=== PATIENT | female | born 1955 | race Caucasian/White ===

== ENCOUNTER → 2018-05-11 15:41 | Outpatient (CLI) | payer OTHER, SELFPAY ==
--- NOTE | 2018-05-11 15:45 | MM_ITS ---
MM Dig screening mamm BI w/CAD CAD Screening INDICATION: Screening for breast cancer, positive family history of breast cancer ORDERING PHYSICIAN: David Candelario MD PATIENT AGE: 63 years COMPARISON: 05/09/2017, 05/04/2016, 10/17/2014 TECHNIQUE: Standard CC and MLO images were obtained. R2 CAD reviewed. FINDINGS: Average to dense fibroglandular tissue. Right breast: Architectural irregularity once again noted in the deep aspect of the right breast slightly lateral not significant changed asymmetric density inferior right breast also unchanged. Left breast: Loop recorder device is once again noted. Asymmetric density in the central aspect of the left breast not significantly changed. No malignant appearing mass or malignant appearing microcalcification. IMPRESSION: Overall no significant change with no evidence of malignancy BI-RADS Category: 2 Benign Finding(s) RECOMMENDED FOLLOW-UP: 1YR - 1 YEAR FOLLOW-UP (A letter has been sent to the patient regarding results of the study.)
== END ==
PROVIDERS: PCP Obstetrics & Gynecology; Visit Provider Obstetrics & Gynecology
DX: Z12.31 Encounter for screening mammogram for malignant neoplasm of breast (principal)
CPT/HCPCS: 77067

== ENCOUNTER → 2018-06-19 15:52 | Outpatient (CLI) | payer OTHER, SELFPAY ==
--- NOTE | 2018-06-19 15:58 | XR_ITS ---
XR hip LT 2-3V w/pelvis Ordering Physician: Scar Lyons MD Patient Age: 63 years: Female HISTORY: ITS.REASON: LEFT HIP PAIN TECHNIQUE: AP pelvis with AP and frog-leg left hip COMPARISON :CT pelvis October 2015 FINDINGS Left hip no fracture or acute findings. Left hip joint space well maintained. The bones well mineralized. The femoral head normal contour and density.. Minimal I corticated I ligamentous calcification, reflecting mild progressive enthesopathy. Seen superior to the greater trochanter of reflecting aging changes, . This was noted developing on previous CT pelvis 2015 slight progression in interval. The fat planes about the hips appear symmetric and within normal limits. Mild degenerative changes lower L-spine. The remainder of osseous pelvis is intact no fracture sacrum and SI joints unremarkable. Right hip intact. Right hip joint space well maintained. Bones well mineralized throughout. IMPRESSION: Left hip intact. No fracture nor acute findings. Osseous pelvis intact.
== END ==
PROVIDERS: PCP Internal Medicine Adolescent Medicine; Visit Provider Internal Medicine Adolescent Medicine
DX: M25.552 Pain in left hip (principal)
CPT/HCPCS: 73502

== ENCOUNTER → 2018-07-04 15:01 | Outpatient (POV) | payer OTHER, SELFPAY | PROVIDERS: Visit Provider Dermatology | DX: Z00.00 Encounter for general adult medical examination without abnormal findings (principal) ==

== ENCOUNTER → 2018-08-14 15:19 | Outpatient (CLI) | payer OTHER, SELFPAY ==
--- NOTE | 2018-08-14 15:25 | XR_ITS ---
XR knee LT 3V Comparison: No prior History: Knee pain Technique: Weightbearing AP, lateral and Arzola views were performed as well as oblique. Findings: Left knee intact with joint space maintained. Medial and lateral compartment intact. Note up to 6 mm subtle lucency at the posterior aspect of the superior patella. May reflect some subchondral cystic change or small osteochondral defect. Upper normal joint fluid suprapatella bursa. IMPRESSION: ... . Only note Small lucent focus at posterior aspect superior patella, reflecting focal degenerative feature- either from cartilage thinning and focal subchondral cystic change, versus small osteochondral defect Perhaps scant increased joint fluid Otherwise medial & lateral compartment unremarkable.
--- NOTE | 2018-08-14 15:25 | XR_ITS ---
XR foot RT min 3V Ordering Physician: Scar Lyons MD Patient Age: 63 years: Female HISTO right foot pain all over. Surgery 3 years ago. RY: ITS.REASON: RT FOOT PAIN TECHNIQUE: 3 view right foot right foot pain COMPARISON :September 2015 FINDINGS No fracture nor subluxation . Bones well mineralized overall satisfactory normal relationships... The forefoot appears stable and intact. However on the frontal projection there is a change in appearance of the navicular.- Noting a 1 cm ovoid lucent area centrally at navicular.on the frontal projection . Suggestion early narrowing at the navicular-medial cuneiform articulation just distal to this. Does patient have pain medial foot? A previous study there is question regarding possible erosion at the medial aspect of first metatarsal base. This is less evident.. Only Question some borderline narrowing at the first carpal/metatarsal joint. . Adequate plantar arch Small 5 mm plantar calcaneal spur again noted slightly more evident IMPRESSION: . No fracture nor nor acute findings.. .. Forefoot intact. Unchanged since 2016. Vague 1 cm ovoid lucent area centrally at navicular, is a change since 2016. Congestion some early narrowing/reflecting minor arthritic arthritic changes at medial cuneiform-navicular articulation just distal to this area
== END ==
PROVIDERS: PCP Internal Medicine Adolescent Medicine; Visit Provider Internal Medicine Adolescent Medicine
DX: M79.671 Pain in right foot (principal); M25.562 Pain in left knee; M79.605 Pain in left leg
CPT/HCPCS: 73562; 73630

== ENCOUNTER 2018-09-14 16:30 | Outpatient (RCR) | payer OTHER, SELFPAY ==
--- NOTE | 2018-08-10 18:13 | HMH.PTOPEV ---
PT Outpatient Evaluation Rehab PT Outpatient Evaluation Start: 08/10/18 17:46 Freq: Status: Active Protocol: Document 08/10/18 17:46 LUCEROISAAC (Rec: 08/10/18 18:13 JENNA [id number]) Electronically Signed By Tanner Landers, PT 08/10/18 17:46 Outpatient Therapy Subjective History Subjective History This is the intial OP PT evaluation for Giulia Houston. Pt reports she had fall ~ 3 years ago and injured her R foot. Pt reports that she also injured her L hip and reports she has had pain in L hip since the fall. Pt reports her pain significantly increased ~ 6 months ago w/ insidious reasons. Pt reportsshe can niot walk w/ out pain or a limp Chief Complaint Pain Stiff Symptom Type Ache Throb Sharp Dull Stabbing Burning Shooting Symptoms Relieved By Rest/Positioning Heat Prescription Meds Symptoms Aggravated By Standing Physical Activity Walking Prior Functional Limitations None Current Functional Limitations Housework Sleeping Standing Squatting Recreation Activity Walking Stairs Symptom Description Constant and Continuous Level of pain today (0-10) 5 Pain scale - at its best (0-10) 5 Pain scale - at its worst (0-10) 8 Hip/Knee Eval Gait Observation General Gait Pattern Observation Antalgic Gait Assistive Device Assistive Devices None / NA Palpation Tenderness left Hip Palpation Findings Tenderness Trigger Point ROM Hip ROM Limitations Pain Hip ROM Reason Not Measured Within Functional Limits Knee ROM Reason Not Measured Within Functional Limits Special Tests Hip Bowstring (Cram) Test Negative Left Negative Right Hip Piriformis Test Positive Left Sciatic Nerve Tension Test Positive Left Hip Scouring (Quadrant) Test Negative Left Outpatient The
== END 2018-09-14 16:35 | disposition home or self-care (01) ==
LOC: PT 16:30
PROVIDERS: Visit Provider Orthopaedic Surgery
DX: M70.62 Trochanteric bursitis, left hip (principal)
CPT/HCPCS: 97010; 97012; 97014; 97033; 97110; 97140; 97163; G0283

== ENCOUNTER → 2019-01-04 15:14 | Outpatient (CLI) | payer OTHER, SELFPAY | PROVIDERS: PCP Internal Medicine Adolescent Medicine; Visit Provider Internal Medicine Cardiovascular Disease | DX: R00.2 Palpitations (principal); R06.09 Other forms of dyspnea; R60.9 Edema, unspecified; G47.9 Sleep disorder, unspecified; R40.0 Somnolence; R94.31 Abnormal electrocardiogram [ECG] [EKG] | CPT/HCPCS: 93270 ==

== ENCOUNTER → 2019-01-18 07:22 | Outpatient (CLI) | payer OTHER, SELFPAY ==
--- NOTE | 2019-01-18 07:25 | CI_ITS ---
Cerebrovascular Exam IMPRESSIONS 1. The bilateral vertebral arteries are patent with normal antegrade flow. 2. Study suggests less than 20% stenosis involving the right internal carotid artery and the left internal carotid artery. 3. Tortuous carotid arteries seen bilaterally. Carotid duplex study. Complete study and Doppler flow study including spectral analysis, color and lemus scale imaging. Tables: Arterial flow: + +--------+---------+ Location V sys V ed + +--------+---------+ Right CCA - proximal 88cm/s 14.1cm/s + +--------+---------+ Right CCA - distal 64.9cm/s 14cm/s + +--------+---------+ Right ECA 76.8cm/s --------- + +--------+---------+ Right ICA - proximal 58.7cm/s 20.3cm/s + +--------+---------+ Right ICA - mid 48.2cm/s 21cm/s + +--------+---------+ Right ICA - distal 83.8cm/s 30.7cm/s + +--------+---------+ Right vertebral 39.8cm/s --------- + +--------+---------+ Left CCA - proximal 99.9cm/s 27.9cm/s + +--------+---------+ Left CCA - distal 88.7cm/s 22.3cm/s + +--------+---------+ Left ECA 76.1cm/s --------- + +--------+---------+ Left ICA - proximal 65.3cm/s 22.6cm/s + +--------+---------+ Left ICA - mid 78.6cm/s 30.9cm/s + +--------+---------+ Left ICA - distal -107cm/s -44.1cm/s + +--------+---------+ Left vertebral 67.7cm/s --------- + +--------+---------+ (Report amended ) Electronically signed by: Star Handley [id number]
--- NOTE | 2019-01-18 07:25 | CA_ITS ---
PROCEDURE: 2-D M-mode and color Doppler study INDICATIONS FOR THE TEST: Chest pain COPD Heart Murmur Tobacco Smoking PalpitationsX Fatigue Syncope Edema HypertensionXDiabetes Mellitus Rheumatic Fever SOB ROBIN Obesity Hyperlipidemia Family History HD Additional History PATIENT INFORMATION HEIGHT:67 WEIGHT:210 GENDER: Female B/P:114/63 2-D/M-MODE INTERPRETATION: 2-D MEASUREMENTS OBSERVED VALUES IN CMS Right Ventricular Dimension (RVDd) 2.3 Interventricular Septum (Thickness)(IVsd) 1.0 Left Ventricular Internal Dimensions(LVIDd) 5.4 Left Ventricular Posterior Wall (Thickness)(LVPWd) .9 Aortic Root 2.8 Aortic Cusp Separation 2.0 Left Atrial Dimensions (LAD) 3.9 2D 1. Left atrium is normal size, left ventricle is normal size, there is no concentric left ventricular hypertrophy, visually estimated ejection fraction 55% with no regional wall motion abnormality. 2. The right atrium and right ventricle are normal size and contractility. 3. The aortic, mitral and tricuspid valvular grossly normal. 4. The pulmonic valve is poorly present. 5. No significant pericardial effusion noted. DOPPLER INTERROGATION: Doppler interrogation of the aortic, mitral and tricuspid valvular presence of mild mitral and tricuspid regurgitation, tricuspid regurgitation jet velocity is inadequate for calculation of the right ventricular systolic pressure, diastolic parameters are within normal range. CONCLUSION: 1. Normal left ventricular size, preserved left ventricular systolic function, visually estimated ejection fraction 55% with no regional wall motion abnormality, diastolic parameters are within normal range. 2. Mild mitral and tricuspid regurgitation 3. No significant pericardial effusion noted.
== END ==
PROVIDERS: PCP Internal Medicine Adolescent Medicine; Visit Provider Internal Medicine Cardiovascular Disease
DX: G47.9 Sleep disorder, unspecified (principal); R40.0 Somnolence; R00.2 Palpitations; R06.09 Other forms of dyspnea; R09.89 Other specified symptoms and signs involving the circulatory and respiratory systems; R60.9 Edema, unspecified; R94.31 Abnormal electrocardiogram [ECG] [EKG]; I35.8 Other nonrheumatic aortic valve disorders
CPT/HCPCS: 93306; 93880; 95806

== ENCOUNTER → 2019-05-31 14:42 | Outpatient (CLI) | payer OTHER, SELFPAY ==
--- NOTE | 2019-05-31 14:43 | XR_ITS ---
PROCEDURE: XR DEXA AXIAL SKELETON CLINICAL HISTORY: screening COMPARISON: No exams were available for comparison TECHNIQUE: FINDINGS: The L1-L4 density is 1.28 grams/centimeters sq with a T-score of 0.9. The lowest density is in the left femoral neck at 0.811 grams/centimeters sq with a T-score of -1.6 consistent with osteopenia. There is mild lumbar scoliosis convex right IMPRESSION: Osteopenia with moderate fracture risk. Treatment advised. Suggest follow-up exam May 2021 Dictated by: Star Handley MD 05/31/2019 16:41 Electronically signed by Star Handley MD in [place] 05/31/2019 16:41
--- NOTE | 2019-05-31 14:43 | MM_ITS ---
PROCEDURE: MM DIG SCREENING MAMM BI W/CAD Patient Age:64Y CLINICAL INDICATION: screening routine screening mammogram.. Takes estrogen no new complaints Family history: Maternal aunt and cousin with breast cancer. COMPARISON: DIGMAMMS MAMMOGRAM SCREEN-CUSTOM FRAME ASSEMBLER N/C from 08/15/2008 DIGMAMMS MAMMOGRAM SCREEN-CUSTOM FRAME ASSEMBLER N/C from 09/02/2009 [facility] DIGITAL MAMM-SCREEN BILATERAL from 11/05/2010 [facility] DIGITAL MAMM-SCREEN BILATERAL from 11/01/2011 [facility] DIGITAL MAMM-SCREEN BILATERAL from 11/06/2012 [facility] DIG MAMM-SCREEN NORA from 11/07/2013 DMDXUAVR DIG MAMM-DX UNI ADD VIEWS-RT from 11/21/2013 DMDXUWAR DIG MAMM-DX UNI RT W ADD VIEW from 05/09/2014 [facility] DIG MAMM-SCREEN NORA from 10/17/2014 [facility] DIG MAMM-SCREEN NORA from 05/04/2016 [facility] DIG MAMM-SCREEN NORA W/CAD from 05/09/2017 [facility] MM Dig screening mamm BI w/CAD from 05/11/2018 TECHNIQUE: Standard CC and MLO images were obtained. R2 CAD reviewed. FINDINGS: Moderate breast density bilaterally. Minimal asymmetry with slight heterogeneous breast pattern Right breast: CAD highlights a small focal area nodular density deep breast MLO view, measuring 5.5mm.-at the deep central right breast on MLO view. Most likely this is a summation shadow, but it is slightly more apparent and evident than previous studies. . The the CC view demonstrates only slight increased density laterally. Suggest cc and MLO spot views of these regions along with a full 90 degree view right breast. If either these areas persist ultrasound recommended to further evaluate I would also note suggestion of subtle area of longstanding very minor architectural distortion at the deep central breast on CC view but this is not of concern and unchanged. Left breast appears stable with no significant new areas of concern. There are some stable small benign-appearing calcifications at the retroareolar region. Follow-up 1 year on the left Note: Apparently study not dictated initially, and then obscured from worklist by the new PAC system IMPRESSION: Right breast. Additional spot views recommended of areas noted above in text but-these most likely reflecting summation shadows. And include small area of nodularity deep breast seen on MLO view; possible minor corresponding density at the lateral breast on CC view. Again likely summation shadows but would benefit from spot views to be cautious Left breast: No new findings of significant concern. Follow-up left mammogram 1 year BI-RAD Category: 0 Need Additional Imaging Evaluation FOLLOW-UP: IMM Immediate Follow-up Recommended (A letter has been sent to the patient regarding results of the study.) Dictated by: Neel Boyd MD 06/08/2019 09:49 Electronically signed by Neel Boyd MD in [place] 06/08/2019 09:49
== END ==
PROVIDERS: PCP Internal Medicine Adolescent Medicine; Visit Provider Obstetrics & Gynecology
DX: Z78.0 Asymptomatic menopausal state (principal); Z12.31 Encounter for screening mammogram for malignant neoplasm of breast
CPT/HCPCS: 77067; 77080

== ENCOUNTER → 2019-06-21 12:30 | Outpatient (CLI) | payer OTHER, SELFPAY ==
--- NOTE | 2019-06-21 12:32 | MM_ITS ---
PROCEDURE: MM DIG MAMM DX UNILAT RT CAD CLINICAL INDICATION: abnormal mammogram Follow-up abnormal mammogram, right breast nodule COMPARISON: [facility] DIG MAMM-SCREEN NORA from 05/04/2016 [facility] DIG MAMM-SCREEN NORA W/CAD from 05/09/2017 [facility] MM Dig screening mamm BI w/CAD from 05/11/2018 MM DIG SCREENING MAMM BI W/CAD from 05/31/2019 US BREAST RT COMPLETE from 06/21/2019 TECHNIQUE: Problem solving views performed of the right breast along with right breast ultrasound. FINDINGS: Average fibroglandular tissue. Multiple asymmetric areas of increased density are once again noted. These have been previously described and appear to compress out as fibroglandular tissue. No discrete mass is evident. No malignant-appearing microcalcification. Right breast ultrasound: Hypoechoic nodules present at 6 o'clock measuring 4 mm. Hypoechoic nodule at 9 o'clock at 4 mm. At 10 o'clock there is a hypoechoic nodule measuring 10 x 6 mm. This was viewed with the technologist and did appear to elongate and may represent an inflamed duct. There are however low level internal echoes in this area. Fine-needle aspiration is suggested with sonographic guidance. These findings were discussed with the patient. IMPRESSION: The areas of asymmetric density on the mammogram appear to compress out. However, there is a mildly suspicious area at 10 o'clock as described above and may represent an inflamed duct or inflamed tissue. Fine-needle aspiration is suggested with sonographic guidance. If this does not aspirate then, core biopsy could be performed at that time. This is mildly suspicious. BI-RAD Category: 4 Suspicious Abnormality - Biopsy Considered FOLLOW-UP: BIO Biopsy Recommended Dictated by: Star Handley MD 06/22/2019 11:43 Electronically signed by Star Handley MD in [place] 06/22/2019 11:43
== END ==
PROVIDERS: PCP Internal Medicine Adolescent Medicine; Visit Provider Obstetrics & Gynecology
DX: R92.8 Other abnormal and inconclusive findings on diagnostic imaging of breast (principal)
CPT/HCPCS: 76641; 77065

== ENCOUNTER → 2019-07-12 13:21 | Outpatient (CLI) | payer OTHER, SELFPAY ==
--- NOTE | 2019-07-12 13:22 | US_ITS ---
PROCEDURE: US FNA BREAST CLINICAL INDICATION: Right breast nodule COMPARISON: MM DIG MAMM DX UNILAT RT CAD from 06/21/2019 US BREAST RT COMPLETE from 06/21/2019 MM DIG MAMM DX UNILAT RT CAD from 07/12/2019 FINDINGS: Following obtaining informed consent under aseptic conditions and local anesthesia with 1 percent buffered lidocaine a 21 gauge needle was inserted into the area of concern at the 10 o'clock region of the right breast. Two passes were made into the nodular area which appeared to decrease slightly in size with minimal aspirate obtained. Cytology: Ductal cells with apocrine metaplasia. This may indicate an apocrine cyst. Post biopsy mammogram of the right breast show no significant abnormalities. IMPRESSION: Successful sonographic guided fine needle aspiration of the hypoechoic nodule at 10 o'clock showing benign findings. Six-month follow-up is suggested. Dictated by: Star Handley MD 07/20/2019 09:11 Electronically signed by Star Handley MD in [place] 07/20/2019 09:11
--- NOTE | 2019-07-12 15:07 | MM_ITS ---
PROCEDURE: MM DIG MAMM DX UNILAT RT CAD CLINICAL INDICATION: S/P FNA RT BREAST COMPARISON: [facility] MM Dig screening mamm BI w/CAD from 05/11/2018 MM DIG SCREENING MAMM BI W/CAD from 05/31/2019 MM DIG MAMM DX UNILAT RT CAD from 06/21/2019 TECHNIQUE: Standard CC and MLO images were obtained. R2 CAD reviewed. FINDINGS: There is average fibroglandular tissue. The previously noted nodular opacity at the 10 o'clock region is less apparent having been aspirated with ultrasound-guided FNA. No malignant appearing mass or malignant-appearing microcalcification. IMPRESSION: Benign findings. Suggest 6 month follow-up per routine protocol following FNA BI-RAD Category: 2 Benign Finding(s) FOLLOW-UP: 6M 6Month Follow-up (A letter has been sent to the patient regarding results of the study.) Dictated by: Star Handley MD 07/13/2019 08:45 Electronically signed by Star Handley MD in [place] 07/20/2019 09:15
== END ==
PROVIDERS: PCP Internal Medicine Adolescent Medicine; Visit Provider Obstetrics & Gynecology
DX: N63.12 Unspecified lump in the right breast, upper inner quadrant (principal)
CPT/HCPCS: 10005; 76942; 77065

== ENCOUNTER → 2019-09-17 13:51 | Outpatient (POV) | payer OTHER, SELFPAY ==
[2019-09-17 13:55] VITALS: RESP 18; O2SAT 99; BMI 31.3
--- NOTE | 2019-09-17 14:48 | XR_ITS ---
PROCEDURE: XR HIP LT 2-3V W/PELVIS CLINICAL INDICATION: LOW BACK PAIN, HIP PAIN COMPARISON: HIPCMLT XR hip LT 2-3V w/pelvis from 06/19/2018 FINDINGS: The calcific linear density adjacent to the left greater trochanteric area is no longer visualized. There are 2 contiguous lucent foci with corticated margins suggesting reactive cysts just beneath the cortex of the lateral margin of the left greater trochanter. Bone density in the left hip joint space and alignment are otherwise normal. Soft tissues are otherwise unremarkable IMPRESSION: No acute process. Possible reactive degenerative subchondral cysts left greater trochanter as described above. Interval resolution of the soft tissue calcific density adjacent to the left greater trochanter. If symptoms persist MRI may be beneficial. Dictated by: Luc Yost 09/17/2019 18:00 Electronically signed by Luc Yost in [place] 09/17/2019 18:00
--- NOTE | 2019-09-17 14:48 | XR_ITS ---
PROCEDURE: XR SACROILIAC JOINT BI MIN 3V CLINICAL INDICATION: LOW BACK PAIN,HIP PAIN COMPARISON: No exams were available for comparison FINDINGS: Bone density is normal. The margins of the sacroiliac joints and sacral foramina appear to be normal without erosions or significant subchondral sclerosis. Visualized portions of the hips appear normal. There is a lower left pelvic punctate phlebolith. Soft tissues are unremarkable. IMPRESSION: No acute findings. Dictated by: Luc Yost 09/17/2019 17:55 Electronically signed by Luc Yost in [place] 09/17/2019 17:55
--- NOTE | 2019-09-17 14:48 | XR_ITS ---
PROCEDURE: XR HIP RT 2-3V W/PELVIS CLINICAL INDICATION: LOW BACK PAIN,HIP PAIN COMPARISON: HIPCMLT XR hip LT 2-3V w/pelvis from 06/19/2018 FINDINGS: No fracture or dislocation is evident. No significant degenerative change. No lytic or blastic change. Unremarkable soft tissues. IMPRESSION: No acute findings. Dictated by: Luc Yost 09/17/2019 17:56 Electronically signed by Luc Yost in [place] 09/17/2019 17:56
--- NOTE | 2019-09-19 12:53 | HMH.PMCON ---
Assessment and Plan (1) Degenerative joint disease (DJD) of lumbar spine Current visit: Yes Status: Chronic Qualifiers: Spinal osteoarthritis complication: with radiculopathy Qualified Code(s): M47.26 - Other spondylosis with radiculopathy, lumbar region Category: Medical Code(s): M47.816 - Spondylosis without myelopathy or radiculopathy, lumbar region (2) Sacroiliitis Current visit: Yes Status: Chronic Category: Medical Code(s): M46.1 - Sacroiliitis, not elsewhere classified - Assessment and plan all Dx Assessment and Plan for all problems:: We will get some x-rays of her bilateral hips along with her SI joints.Helping narrow down her pain pattern. I do believe her SI joint problems may be stemming from her degeneration in her back we will treat her SI joints and then plan on potentially treating her back pain as well. We did discuss an SI joint belt. She is continuing anti-inflammatories. She is continuing a home stretching program. She states she is not on any anticoagulation therapy. She has been instructed to call the office if she has any issues prior to her next appointment. Dr. Valdez has reviewed this note and agrees with this plan of care. This note was dictated using voice recognition software and may contain errors or omissions HPI - Data of Consult Consult date: 09/17/19 Requesting Physician: Ivana See APRN Primary Care Provider: Scar Lyons MD - Consult Narrative Reason for consult: Back pain History of present illness: Ms. Houston is a 64 year old female who presents today for consultation in regards to her back and leg pain. Patient rates her pain today 4 out of 10. Mostly in her low back and radiating into her hips. She has radiation into her knee on the right side. Patient has been seen by neurosurgery in the past. Patient and I had a discussion in regards to treatment. She also has quite a bit of SI joint discomfort. Patient has a positive SI joint compression test Sagar sign and William's test bilaterally. Patient also has an MRI showing degenerative changes within her lower back. Facet joint arthropathy. Patient tried and failed Lortab, Celebrex, gabapentin. Patient does physical therapy with some relief. She is had some hip injections in the past with no real relief. She has no imaging that is recent in regards to her SI joints. CC: Ivana See APRN [facility] History I have reviewed the patient's past medical history: Yes Medical History: Reports:: Arrhythmia, Congestive Heart Failure, Gastroesophageal Reflux Disease(GERD), Hypertension, Palpitations Denies:: Diabetes Mellitus Type 1, Diabetes Mellitus Type 2, Internal Pacemaker, Lung Disease, Seizures *Have you ever received a pneumonia vaccine?: Yes *Have you received a flu vaccine this season?: Yes Other Medical History: Reports: Arthritis Other Surgeries: Yes: Appendectomy, Cardiac Catheterization, Cholecystectomy, Colon Resection, Hysterectomy-Total, Other. No: Pacemaker Amputation: No Fractures: No - *Social History Smoking Status: Never smoker Alcohol Intake: never Alcohol Intake Frequency:: holidays/special occasions only Substance Use Type: denies use *Occupational Status:: other Housing: house Household Members: spouse *Travel in the last 8 weeks: None Family Hx:: Asthma, Diabetes, Hypertension, Hyperlipidemia, Thyroid Disorder, Coronary Artery Disease Review of Systems - Review of Systems ROS General: no recent weight change, no fever, no sleep disturbances Respiratory: no cough, no shortness of air, no recurring pulmonary infections Cardiovascular/Peripheral Vascular: No chest pain, No palpitations, no edema, no shortness of breath. Gastrointestinal: no new onset incontinence, normal bowel movements reported Genitourinary: no new onset incontinence Musculoskeletal: Back pain, leg pain, SI joint pain Psychiatric: normal mood/ affect, Neurological: [denies new onset weak
== END ==
PROVIDERS: PCP Internal Medicine Adolescent Medicine; Visit Provider Clinical Nurse Specialist Family Health
DX: M47.816 Spondylosis without myelopathy or radiculopathy, lumbar region (principal); M46.1 Sacroiliitis, not elsewhere classified
CPT/HCPCS: 72202; 73502; 99202

== ENCOUNTER → 2019-11-09 08:51 | Outpatient (CLI) | payer OTHER, SELFPAY ==
--- NOTE | 2019-11-09 08:56 | XR_ITS ---
PROCEDURE: XR SHOULDER LT MIN 2V CLINICAL INDICATION: LT ROTATOR CUFF SYNDROME Left shoulder pain COMPARISON: No exams were available for comparison FINDINGS: No fracture or dislocation. No lytic or blastic change. There is some mild subacromial stenosis. Minimal hypertrophic changes noted along the inferior aspect of the glenoid. IMPRESSION: Mild subacromial stenosis which may result in impingement symptomatology. Minimal spurring along the inferior aspect of the glenoid Dictated by: Star Handley MD 11/09/2019 13:21 Electronically signed by Star Handley MD in [place] 11/09/2019 13:21
--- NOTE | 2019-11-09 08:56 | XR_ITS ---
PROCEDURE: XR CERVICAL SPINE 5V CLINICAL INDICATION: CERVICAL NEURAGLIA Neck pain, left-sided neuralgia COMPARISON: CS5 CERVICAL SPINE 4 OR 5 VIEWS from 06/25/2015 FINDINGS: Moderate to severe degenerative disc disease is present at C5-C6. There is slight reversal of the lordosis at C5-C6. There is mild foraminal narrowing on the right at C3-C4 and C5-C6 and on the left at C4-C5. No fracture or dislocation. No lytic or blastic change. No evidence of cervical rib. IMPRESSION: Degenerative disc disease C5-C6 with right foraminal narrowing at C3-C4 and C5-C6 and mild left foraminal narrowing at C4-C5. The degenerative disc disease is not significantly changed Dictated by: Star Handley MD 11/09/2019 13:19 Electronically signed by Star Handley MD in [place] 11/09/2019 13:19
== END ==
PROVIDERS: PCP Internal Medicine Adolescent Medicine; Visit Provider Internal Medicine Adolescent Medicine
DX: M54.12 Radiculopathy, cervical region (principal); M75.102 Unspecified rotator cuff tear or rupture of left shoulder, not specified as traumatic
CPT/HCPCS: 72050; 73030

== ENCOUNTER → 2019-11-26 07:43 | Outpatient (CLI) | payer SELFPAY ==
--- NOTE | 2019-11-26 07:44 | CT_ITS ---
PROCEDURE: CT HEART W CALCIUM SCORE CLINICAL HISTORY: screening COMPARISON: No exams were available for comparison TECHNIQUE: Axial images obtained with sagittal and coronal reformats. All CT scans at the facility use one or more dose reduction, viz: automated exposure control, ma/kV adjustment per patient size (including targeted exams where dose is matched to indication, i.e. head), or iterative reconstruction technique. FINDINGS: Coronary artery calcium score is 0 indicating no identifiable calcific atherosclerotic plaque with very low cardiovascular disease risk. Loop recorder device is present on the left IMPRESSION: No identifiable calcific plaque with very low cardiovascular disease risk Dictated by: Star Handley MD 11/26/2019 18:53 Electronically signed by Star Handley MD in [place] 11/26/2019 18:53
== END ==
PROVIDERS: PCP Internal Medicine Adolescent Medicine; Visit Provider Internal Medicine Cardiovascular Disease
DX: Z13.6 Encounter for screening for cardiovascular disorders (principal)
CPT/HCPCS: 75571

== ENCOUNTER → 2019-12-27 10:10 | Outpatient (CLI) | payer OTHER, SELFPAY ==
--- NOTE | 2019-12-27 10:15 | MR_ITS ---
PROCEDURE: MR SHOULDER LT WO CON CLINICAL INDICATION: ROTATOR CUFF SYNDROME OF LEFT SHOULDER Pain that extends the left bicep, limited range of motion TECHNIQUE: Routine multiplanar multisequence exam was performed. FINDINGS: There is moderate acromioclavicular joint arthropathy. Osteophytes are seen projecting inferior to the acromioclavicular joint approximately 3 millimeters. There is some mass effect on the supraspinatus muscle as it traverses inferiorly causing mild impingement. This would predispose the patient to chronic rotator cuff impingement syndrome and rotator cuff tear. There is supraspinatus and infraspinatus tendinopathy without rotator cuff tear. Small amount of fluid is seen in the subacromial/subdeltoid bursa. Small amount of fluid is seen in the subscapularis bursa. Bicipital tendon is in place. IMPRESSION: Acromioclavicular joint arthropathy with inferiorly projecting spurs causing supraspinatus impingement with supraspinatus and infraspinatus tendinopathy. No rotator cuff tear. Dictated by: Parker Musa 12/27/2019 12:25 Electronically signed by Parker Musa in [place] 12/27/2019 12:25
--- NOTE | 2019-12-27 10:16 | MR_ITS ---
PROCEDURE: MR CERVICAL SPINE WO CON CLINICAL INDICATION: CERVICAL NEURALGIA Neck pain extending to left upper extremity numbness tingling COMPARISON: No exams were available for comparison TECHNIQUE: Standard multiplanar multiecho sequences are performed without contrast. 3-D MIP and myelographic images are also rendered and reviewed FINDINGS: The vertebrae are of normal height and alignment. There is no malignant bone marrow signal. There is anatomical positioning of cerebellar tonsils. There is degenerative disc disease at C5-6 with loss of disc space height. At C3-4 there is asymmetrical right hypertrophic facet disease with right foraminal stenosis. At C4-5 there is mild disc bulge with mild convex extrinsic mass effect on the thecal sac. At C5-6 there is disc osteophyte complex eccentric to the right of midline with extrinsic mass effect on the thecal sac with no high-grade central canal or foraminal stenosis. At C6-7 there is disc bulge eccentric to the right of midline with mild extrinsic mass effect on the thecal sac. At C7-T1 there is mild disc bulge with mild mass effect on the thecal sac. At T1-T2 and T2-T3 no axial images are obtained through the disc spaces. Disc extends posterior to the vertebral body endplates with mild extrinsic mass effect on the thecal sac. Disc bulges without high-grade central canal or foraminal stenosis should be considered. No disc herniation is apparent. The spinal cord has a normal appearance. IMPRESSION: Multilevel degenerative disc and facet disease with greatest neural impingement appearing to be right foraminal stenosis C3-4 Dictated by: Parker Musa 12/27/2019 12:33 Electronically signed by Parker Musa in [place] 12/27/2019 12:33
== END ==
PROVIDERS: PCP Internal Medicine Adolescent Medicine; Visit Provider Internal Medicine Adolescent Medicine
DX: M12.812 Other specific arthropathies, not elsewhere classified, left shoulder (principal); M54.12 Radiculopathy, cervical region
CPT/HCPCS: 72141; 73221; 76376

== ENCOUNTER → 2020-01-01 08:58 | Outpatient (CLI) | payer OTHER, SELFPAY ==
--- NOTE | 2020-01-01 | US_ITS ---
PROCEDURE: MM DIG MAMM DX UNILAT RT CAD Digital Breast Tomosynthesis Included CLINICAL INDICATION: ABNORMAL MAMM Follow-up abnormal mammogram, six-month follow-up COMPARISON: MM DIG SCREENING MAMM BI W/CAD from 05/31/2019 US BREAST RT COMPLETE from 06/21/2019 MM DIG MAMM DX UNILAT RT CAD from 06/21/2019 MM DIG MAMM DX UNILAT RT CAD from 07/12/2019 US FNA BREAST from 07/12/2019 US BREAST RT COMPLETE from 01/01/2020 TECHNIQUE: Standard CC and MLO images and 3D Tomosynthesis was obtained. R2 CAD reviewed. Right breast ultrasound complete with axilla FINDINGS: There is average fibroglandular tissue. No malignant appearing mass or malignant-appearing microcalcification is evident. There are scattered benign-appearing calcifications Right breast ultrasound: 3 mm cyst at 9 o'clock near the nipple, 10 mm hypoechoic nodule at the 10 o'clock region near the nipple representing the previous area of aspiration less apparent than when compared to the previous. This did not show carcinoma on the previous FNA.. IMPRESSION: Benign findings. No evidence of malignancy. Recommend bilateral screening mammogram May 2019 to put patient back on schedule BI-RAD Category: 2 Benign Finding(s) FOLLOW-UP: 6M 6Month Follow-up (A letter has been sent to the patient regarding results of the study.) The the Dictated by: Star Handley MD 01/09/2020 12:20 Electronically signed by Star Handley MD in [place] 01/09/2020 12:20
== END ==
PROVIDERS: PCP Internal Medicine Adolescent Medicine; Visit Provider Internal Medicine Adolescent Medicine
DX: R92.8 Other abnormal and inconclusive findings on diagnostic imaging of breast (principal)
CPT/HCPCS: 76641; 77061; 77065; G0279

== ENCOUNTER 2020-01-11 13:00 | Outpatient (RCR) | payer OTHER, SELFPAY ==
--- NOTE | 2019-11-12 10:22 | HMH.PTOPEV ---
PT Outpatient Evaluation Rehab PT Outpatient Evaluation Start: 11/12/19 10:11 Freq: Status: Active Protocol: Document 11/12/19 10:11 FLAVIA (Rec: 11/12/19 10:22 FLAVIA [id number]) Electronically Signed By Alessio Magallanes, PT 11/12/19 10:11 Outpatient Therapy Subjective History Subjective History Pt reports insidious onset L sided neck pain, L SH pain, and L UE s/s to hand beginning ~4 weeks ago. Pt reports 'I quit working, and everything started hurting'. Recent Xrays have revealed L SH subacromial stenosis, L neural foramina nn impingement @C4-6 . Pt reports severe pain from base of neck to L elbow, with severe N&T in L hand, and weakness L UE globally. Chief Complaint Pain,Stiff,Paresthesia, Weakness Symptom Type Ache,Sharp,Dull,Numbness, Tingling Symptoms Relieved By Rest/Positioning,Heat, Prescription Meds Symptoms Aggravated By Physical Activity,Lifting Prior Functional Limitations Reaching,Lifting,Housework, Dressing Current Functional Limitations Reaching,Lifting,Housework, Dressing Symptom Description Constant but Variable Level of pain today (0-10) 5 Pain scale - at its best (0-10) 4 Pain scale - at its worst (0-10) 8 Cervical Eval Palpation Cervical Muscles L Cervical Paraspinal,L CT Junction,L Upper Trapezius Cervical/Thoracic Palpation Findings Tenderness,Trigger Point Posture Head/C-Spine Posture Sitting Position Neutral Position Head/C-Spine Posture Standing Position Neutral Position Flexibility Deficits Upper Trapezius Muscle Length (R) Moderate Tightness,(L) Moderate Tightness Scalene Group Muscle Length (L) Moderate Tightness Pectoralis Major Muscle Length (R) Mild Tightness,(L) Mild Tightness Pectoralis Minor Muscle Length (R) Mild Tightness,(L) Mild Tightness Passive Joint Mobility Cervical PIVM Dec: R OA L OA R AA L AA R C2/3 L C2/3 R C3/4 L C3/4 R C
--- NOTE | 2019-12-20 09:20 | HMH.RHREAS ---
Rehab Reassessment Rehab OP Re-assessment Start: 12/20/19 09:00 Freq: Status: Active Protocol: Document 12/20/19 09:00 FLAVIA (Rec: 12/20/19 09:20 FLAVIA [id number]) Electronically Signed By Alessio Magallanes, PT 12/20/19 09:00 Rehab Re-assessment Subjective Subjective PT REPORTS 4/10 NECK AND L SH PAIN, AND 10/10 NECK AND L SH PAIN W/ACTIVITY ON VAS. PT REPORTS 'MY NECK DOES FEEL BETTER, BUT WHEN I'M ACTIVE I' M MISERABLE'. Objective Objective Notes AROM: CROM FLX 0-55, EXT 0-70, B SB 0-50 L SH FLX 0-170 W/PAIN, ABD 0- 160 W/PAIN, IR 0-10 W/PAIN, ER 0-15 W/PAIN MMT: L SH FLX 4/5, ABD 4/5, ER 4-/5, IR 4/5 ST'S: EMPTY CAN + L, SPEEDS + L, DROP ARM +L TTP: L UT 3/4, L POST RTC 3/4, L ANT RTC 1-2/4, L CERVICAL PARA 3/4 Assessment Progress Assessment Slower Than Expected Assessment Notes PT W/IMPROVED AROM L SH , AND CROM. NO SIGNIFCANT IMPROVEMENTS IN TTP, MMT, OR PAIN LEVEL Patient goals met STG'S 10/03 Goals Not Met STG'S 04/02, LTG'S 07/05 Plan Plan PT TO CONT W/SKILLED P.T. TO MAKE FURTHER IMPROVEMENTS IN CROM/AROM, STRENGTH, AND TTP TO ALLOW FOR OPTIMAL FUNCTION. REQUESTING MRI OF L SH AND CERVICAL SPINE VIA REFERRING PCP Frequency of Therapy 1-2X/WK Duration of therapy 3-4 WKS Time and Billing Re-Eval Time 15 Re-Eval Billing Units 1 PHYSICIAN CERTIFICATION: I certify the specified therapy services for Giulia Houston are required, authorized, and reviewed every 30 days.
== END 2020-01-11 13:05 | disposition home or self-care (01) ==
LOC: PT 13:00
PROVIDERS: PCP Internal Medicine Adolescent Medicine; Visit Provider Internal Medicine Adolescent Medicine
DX: M54.12 Radiculopathy, cervical region (principal); M75.102 Unspecified rotator cuff tear or rupture of left shoulder, not specified as traumatic
CPT/HCPCS: 20560; 97010; 97012; 97014; 97033; 97035; 97110; 97140; 97163; 97164; G0283

== ENCOUNTER → 2020-01-18 10:05 | Outpatient (CLI) | payer OTHER, SELFPAY ==
[2020-01-18 10:39] LABS: Basophils # 0.1 K/mm3 (0-0.2); Basophils % 1.2 % (0.1-2.0); Eosinophils # 0.3 K/mm3 (0.0-0.4); Hematocrit 41.6 % (37.0-47.0); Hemoglobin 13.8 g/dL (12.2-16.2); Lymphocytes # 2.3 K/mm3 (0.7-4.5); Lymphocytes % 24.5 % (10-50); Mean Corpuscular HGB Conc 33.1 g/dL (31.8-35.4); Mean Corpuscular Hemoglobin 31.8 pg (27.0-31.2); Mean Corpuscular Volume 96.1 fl (81-99); Mean Platelet Volume 8.5 fl (7.4-10.4); Monocytes # 0.6 K/mm3 (0.1-1.0); Monocytes % 6.5 % (1.7-9.3); Neutrophils # 6.2 K/mm3 (1.8-7.8); Neutrophils % 64.8 % (37.0-80.0); Platelet Count 281 K/mm3 (142-424); Red Blood Count 4.33 M/mm3 (4.20-5.40); Red Cell Distribution Width 12.8 % (11.5-17.5); White Blood Count 9.5 K/mm3 (4.8-10.8)
[2020-01-18 11:12] LABS: Chloride 104 mmol/L (98-107); Potassium 4.4 mmoL/L (3.5-5.1); Sodium 141 mmol/L (136-145)
[2020-01-18 11:14] LABS: Alanine Aminotransferase 14 U/L (12-78); Anion Gap 10.4 mEq/L (5-15); Aspartate Amino Transferase 22 U/L (14-36); Bilirubin,Unconjugated 0.3 mg/dL (0.0-1.1); Blood Urea Nitrogen 16 mg/dl (7-17); Carbon Dioxide 31 mmol/L (22.0-30.0); Estimated Glomerular Filt Rate 84 ml/min (>60); GFR (African American) 102 ML/MIN (>60)
[2020-01-18 11:15] LABS: Alkaline Phosphatase 95 U/L (38-126); Bilirubin,Indirect 0.2 mg/dL (0.0-0.9); Bilirubin,Total 0.2 mg/dl (0.2-1.3); Calcium 9.6 mg/dl (8.4-10.2); Chol/HDL Ratio 2.3 (1-3.5); Cholesterol 174 mg/dl (140-200); Glucose 81 mg/dl (74-100); HDL Cholesterol 77 mg/dl (40-60); Total Protein,Serum 6.3 g/dl (6.3-8.2); Triglycerides 111 mg/dl (30-150); VLDL Cholesterol 22 mg/dL (0-40)
[2020-01-18 11:47] LABS: Thyroid Stimulating Hormone 2.31 uIU/mL (0.465-4.68)
== END ==
PROVIDERS: Visit Provider Physician Assistant
DX: R00.2 Palpitations (principal); R06.09 Other forms of dyspnea; R60.9 Edema, unspecified
CPT/HCPCS: 36415; 80048; 80061; 80076; 84439; 84443; 85025; 93225

== ENCOUNTER → 2020-07-04 13:46 | Outpatient (CLI) | payer MEDICARE, OTHER, SELFPAY ==
--- NOTE | 2020-07-04 13:48 | XR_ITS ---
PROCEDURE: XR DEXA AXIAL SKELETON CLINICAL HISTORY: POST MENOPAUSAL COMPARISON: CR BONE3 BONE DENSITOMETRY(HIP:LT SPINE from 05/09/2017 FINDINGS: The right hip BMD is 0.645 with a T-score of -1.8. The left hip BMD is 0.672 with a T-score of -1.6. The lumbar spine BMD is 1.175 with a T-score of 1.2. Previously the lowest density was in the left femoral neck with T-score of -0.8. The bone density has decreased compared to the previous exam IMPRESSION: This patient is considered osteopenic according to the World Health Organization criteria. Bone density is between 10 and 25 percent below young normal. Fracture risk is moderate. Treatment is advised. Based on these results a follow-up exam is recommended in 2 year. Dictated by: Star Handley MD 07/08/2020 12:40 Star Handley MD in [place] 07/08/2020 12:40
--- NOTE | 2020-07-04 13:49 | MM_ITS ---
PROCEDURE: MM DIG SCREENING MAMM BI W/CAD Digital Breast Tomosynthesis Included CLINICAL INDICATION: SCREENING There is a history of breast cancer patient's maternal aunt and maternal cousin. There has been a previous biopsy right breast for benign disease. Patient currently is on estrogen. COMPARISON: MG MM DIG MAMM DX UNILAT RT CAD from 06/21/2019 MG MM DIG MAMM DX UNILAT RT CAD from 07/12/2019 MG MM DIG MAMM DX UNILAT RT CAD from 01/01/2020 TECHNIQUE: Standard CC and MLO images and 3D Tomosynthesis was obtained. R2 CAD reviewed. FINDINGS: Mild to moderate diffuse fibroglandular densities are seen in both breasts. There are scattered benign-appearing microcalcifications in each breast. There is a loop recorder device projecting over the inner quadrant left breast. There is no suspicious lesion in either breast and no suspicious microcalcifications. IMPRESSION: Fibrofatty parenchyma with no suspicious lesions seen BI-RAD Category: 2 Benign Finding(s) FOLLOW-UP: 1YR 1 Year Follow-up (A letter has been sent to the patient regarding results of the study.) Dictated by: Dr. Amanuel Matute MD 07/09/2020 08:04 Dr. Amanuel Matute MD in [place] 07/09/2020 08:04
== END ==
PROVIDERS: PCP Internal Medicine Adolescent Medicine; Visit Provider Internal Medicine Adolescent Medicine
DX: Z12.31 Encounter for screening mammogram for malignant neoplasm of breast (principal); Z13.820 Encounter for screening for osteoporosis; Z78.0 Asymptomatic menopausal state
CPT/HCPCS: 77063; 77067; 77080

== ENCOUNTER 2020-07-11 15:00 | Outpatient (RCR) | payer MEDICARE, OTHER, SELFPAY ==
--- NOTE | 2020-06-06 15:48 | HMH.PTOPEV ---
PT Outpatient Evaluation Rehab PT Outpatient Evaluation Start: 06/06/20 15:17 Freq: Status: Active Protocol: Document 06/06/20 15:17 DINA (Rec: 06/06/20 15:48 DINA [id number]) Electronically Signed By Maxi Saleem, PT 06/06/20 15:17 Outpatient Therapy Subjective History Subjective History Patient is a 65 year old female presenting to outpatient PT with reports of chronic R foot pain and foot drop that has progressively gotten worse over the past year. She underwent surgery for posterior tibialis tendon repair approx 5 years ago. Symptom onset started shortly thereafter. Pt reports multiple falls. I fall atleast once a week. She has had 3-4 previous episodes of PT with minimal improvement noted. Signifcant pes planus noted in weight bearing. Pt came to PT to request fitting for AFO. Comorbidities include hx of HTN, LS/CS pain, B hip pain and polymyalgia rheumatica. Chief Complaint Pain,Paresthesia,Weakness Symptom Type Sharp,Burning,Numbness, Tingling Symptoms Relieved By Rest/Positioning,Prescription Meds Symptoms Aggravated By Standing,Physical Activity, Walking Prior Functional Limitations Housework,Standing,Recreation Activity,Walking,Stairs, Balance Current Functional Limitations Housework,Standing,Recreation Activity,Walking,Stairs, Balance Level of pain today (0-10) 5 Pain scale - at its best (0-10) 3 Pain scale - at its worst (0-10) 10 Ankle/Foot Eval Gait Observation General Gait Pattern Observation Antalgic Gait,Decrease Weight Bear (R) Assistive Device Ambulation Assistive Device None Palpation Tenderness right Ankle/Foot Palpation Findings Tenderness Ankle/Foot Palpation Overall Comment Dorsum of talus, surgical incision, distal post-tib attach 3/4 ROM Ankle/Foot Dorsiflexion w/Knee Extended 2 Active Range Motion (degrees) Ankle/Foot Dorsiflexion w/Knee Extended 5 Passive Range (
== END 2020-07-11 15:05 | disposition home or self-care (01) ==
LOC: PT 15:00
PROVIDERS: PCP Internal Medicine Adolescent Medicine; Visit Provider Internal Medicine Adolescent Medicine
DX: M21.371 Foot drop, right foot (principal)
CPT/HCPCS: 97010; 97014; 97110; 97112; 97163; 97760; G0283

== ENCOUNTER → 2020-08-05 16:22 | Outpatient (CLI) | payer MEDICARE, OTHER, SELFPAY ==
--- NOTE | 2020-08-05 16:31 | XR_ITS ---
PROCEDURE: XR CHEST PORTABLE CLINICAL HISTORY: COVID OUT PATIEN Cough COMPARISON: CR CXR CHEST(2 VIEWS-NOT PORTABLE) from 09/03/2015 CR CXR1 CHEST-PORTABLE from 06/24/2017 FINDINGS: The cardiomediastinal silhouette and pulmonary vascularity are within normal limits. Loop recorder device is present projecting over the left heart. Lungs are clear. Mild prominence of the mediastinum unchanged. No acute bony abnormalities. IMPRESSION: No change with no acute finding Dictated by: Star Handley MD 08/05/2020 17:06 Star Handley MD in [place] 08/05/2020 17:06
[2020-08-05 17:21] LABS: Adenovirus,PCR Not Detected (NotDetected); Bordetella Pertussis Not Detected (NotDetected); Chlamydophila Pneumoniae, PCR Not Detected (NotDetected); Coronavirus 19, PCR Not Detected (NotDetected); Coronavirus 229E Not Detected (NotDetected); Coronavirus NL63 Not Detected (NotDetected); Coronavirus OC43 Not Detected (NotDetected); Coronovirus HKU1,PCR Not Detected (NotDetected); Human Metapneumovirus Not Detected (NotDetected); Influenza A, PCR Not Detected (NotDetected); Influenza AH1, 2009 Not Detected (NotDetected); Influenza AH1, PCR Not Detected (NotDetected); Influenza AH3,PCR Not Detected (NotDetected); Influenza B, PCR Not Detected (NotDetected); Mycoplasma Pneumoniae, PCR Not Detected (NotDetected); Parainfluenza 1, PCR Not Detected (NotDetected); Parainfluenza 2, PCR Not Detected (NotDetected); Parainfluenza 3, PCR Not Detected (NotDetected); Parainfluenza 4, PCR Not Detected (NotDetected); Respiratory Syncytial Virus Not Detected (NotDetected); Rhinovirus/Enterovirus Not Detected (NotDetected)
== END ==
PROVIDERS: PCP Internal Medicine Adolescent Medicine; Visit Provider Internal Medicine Adolescent Medicine
DX: Z03.818 Encounter for observation for suspected exposure to other biological agents ruled out (principal); R05 Cough
CPT/HCPCS: 71045; 87581; 87633; 87798; U0003

== ENCOUNTER → 2021-04-24 10:37 | Outpatient (CLI) | payer OTHER, MEDICARE, SELFPAY ==
--- NOTE | 2021-04-24 10:37 | MR_ITS ---
PROCEDURE: MR CERVICAL SPINE WO CON CLINICAL INDICATION: cervical spondylosis with radiculoapthy, Left C5 Neck pain. Lt shoulder pain. Lt arm goes numb/tingly especially when sleeping. No injury. COMPARISON: MR MR CERVICAL SPINE WO CON from 12/27/2019 TECHNIQUE: Standard multiplanar multiecho sequences are performed without contrast. 3-D MIP and myelographic images are also rendered and reviewed FINDINGS: There is normal alignment. The craniocervical junction has an unremarkable appearance. C2-C3: Unremarkable. C3-C4: Facet hypertrophic changes with a tiny left paracentral disc protrusion without impingement. Foraminal narrowing is present on the right from facet hypertrophic change. This is causing impingement upon the exiting C3 nerve root. This has slightly increased compared to the previous exam along with some right lateral recess narrowing which is also slightly increased. C4-C5: Degenerative disc disease. Mild facet and uncovertebral hypertrophy. 2 mm anterolisthesis of C4 with mild left-sided foraminal narrowing which is slightly increased. Minimal bulging disc. C5-C6: Degenerative disc disease with minimal bulging disc and endplate hypertrophic change with facet and uncovertebral hypertrophy with bilateral foraminal narrowing right greater than left. The foraminal narrowing has increased compared to the previous exam. Prominent anterior osteophytes. C6-C7: Facet and uncovertebral hypertrophy with bilateral foraminal narrowing right greater than left. The foraminal narrowing has increased compared to the previous exam C7-T1: Mild degenerative disc disease. Mild bilateral foraminal narrowing. Minimal bulging disc is present at T1-T2 and T2-T3. IMPRESSION: Multilevel cervical spondylosis with lateral recess and foraminal narrowing. Please see above for detailed description at each level. This process as has slightly progressed. No extruded herniated disc. Dictated by: Star Handley MD 04/27/2021 07:57 Star Handley MD in [place] 04/27/2021 07:57
--- NOTE | 2021-04-24 10:37 | MR_ITS ---
PROCEDURE: MR SHOULDER LT WO CON CLINICAL INDICATION: Left arm pain, left shoulder pain COMPARISON: MR MR SHOULDER LT WO CON from 12/27/2019 TECHNIQUE: Routine multiplanar multi echo sequences are performed without gadolinium enhancement. FINDINGS: Acromioclavicular arthropathy causing mild impingement upon the supraspinatus and infraspinatus tendons at the musculotendinous junction as previously described. This does not appear significantly changed. There is subacromial stenosis at 4 mm. Mild thickening with increased T2 signal involves the supraspinatus and infraspinatus tendons consistent with tendinopathy/tendinosis. There is some increase in the T2 signal in the infra acromial region with some increase in thickening suggesting slight worsening of the tendinopathy/tendinosis of the supraspinatus tendon. No definite tendon tear is apparent. The subscapularis and teres minor tendons appear intact. No obvious labral tear. Bicipital tendon is in place. Small amount fluid is present along bicipital tendon sheath and there is a small amount fluid in the sub coracoid region and inferior to the a chromium. IMPRESSION: 1. Acromioclavicular arthropathy with impingement upon the supraspinatus and infraspinatus tendons which is not significantly change with resultant subacromial stenosis. 2. Tendinosis/tendinopathy of the supraspinatus and infraspinatus tendons which appears slightly worse in the supraspinatus region. No rotator cuff tear apparent. 3. Tenosynovitis of the bicipital tendon with a small amount of fluid in the sub coracoid region and inferior to the a chromium Dictated by: Star Handley MD 04/27/2021 09:02 Star Handley MD in [place] 04/27/2021 09:02
== END ==
PROVIDERS: PCP Internal Medicine Adolescent Medicine; Visit Provider Specialist
DX: M54.2 Cervicalgia (principal); M79.602 Pain in left arm; M25.512 Pain in left shoulder; R20.0 Anesthesia of skin; G89.29 Other chronic pain
CPT/HCPCS: 72141; 73221; 76376

== ENCOUNTER → 2021-05-01 07:40 | Outpatient (CLI) | payer OTHER, MEDICARE, SELFPAY | PROVIDERS: Visit Provider Internal Medicine Gastroenterology | DX: Z01.812 Encounter for preprocedural laboratory examination (principal); Z11.52 Encounter for screening for COVID-19; Z13.810 Encounter for screening for upper gastrointestinal disorder; K21.9 Gastro-esophageal reflux disease without esophagitis | CPT/HCPCS: U0003 ==

== ENCOUNTER 2021-05-04 09:41 | Day surgery (SDC) | payer OTHER, MEDICARE, SELFPAY ==
[2021-05-04] VITALS (7 sets, daily range): BP systolic 107–134; BP diastolic 68–87; PULSE 58–74; RESP 12–18; TEMP 36.4–36.9; O2SAT 91–98; BMI 33.7
--- NOTE | 2021-05-04 09:53 | P.PN_ITS ---
[facility] Anesthesia Checklist - Patient Identification Patient Identification: Arm Band - Structural Data Admitted From: Home Planned Operative Procedure/s: EGD Consent for Planned Operative Procedure(s) Verified: Yes - NPO Status Verified Time NPO: 00:00 - Additional verifications Anesthesia Reactions: No - Airway Assessment C-Spine Mobility Assessed: Yes TMJ Mobility Assessed: Yes Dentition: Good Dentition - Neurological Assessment Level of Consciousness: Awake Hx Seizures: No Numbness or tingling in extremities: No - Anesthesia Plan Anesthesia Risk discussed: Yes Anesthesia Plan: Verified ASA Class: II Anesthesia Type: MAC [facility] History I have reviewed the patient's past medical history: Yes Medical History: Reports:: Arrhythmia, Congestive Heart Failure, Gastroesophageal Reflux Disease(GERD), Hyperlipidemia, Hypertension, Palpitations Denies:: Cancer, Diabetes Mellitus Type 1, Diabetes Mellitus Type 2, Internal Pacemaker, Lung Disease, MRSA, Seizures *Have you ever received a pneumonia vaccine?: Yes *Have you received a flu vaccine this season?: Yes Other Medical History: Reports: Arthritis Anesthesia experience/problems:: None Other Surgeries: Yes: Appendectomy, Cardiac Catheterization, Cholecystectomy, Colonoscopy, Colon Resection, EGD, Hysterectomy-Total, Other. No: Pacemaker Amputation: No Fractures: No - *Social History Last grade of school completed: Advanced degree Smoking Status: Never smoker Alcohol Intake: current Alcohol Intake Frequency:: holidays/special occasions only Substance Use Type: denies use *Occupational Status:: employed Housing: house Household Members: spouse *Travel in the last 8 weeks: None Family Hx:: Cancer, Diabetes, Other
--- NOTE | 2021-05-04 11:24 | HMH.PROC ---
[facility] Procedure Note Procedure Note:: Upper Endoscopy Procedure Report: Esophagogastroduodenoscopy with cold biopsies and TTS balloon dilation Endoscopost: Jose Manuel II, MD Referring Physician: Scar Lyons M.D. Date of Procedure: May 04, 2021 Equipment: Olympus GIF 190 standard upper endoscope Sedation: MAC sedation Indications: Mrs. Houston is a 66-year-old female with a long history of GERD. She also has dyspepsia and some functional reflux. The patient has had longstanding IBS constipation. She presently has been on omeprazole, Pepcid, erythromycin and Motegrity. More recently she has had 2 episodes of awakening at nighttime from sleep with gasping, choking and aspiration from gastroesophageal reflux. She continues to have moderate belching and some bloating. She reports no significant heartburn or reflux. She does report some dysphagia with globus sensation. She did have a prior small bowel resection (Dr. Gallo Valdes) and had been seen additionally at [facility]. The patient did have a prior EGD with [place] in May 2019 and had short segment Colorado's esophagus and medium sized hiatal hernia. Her colonoscopy revealed a diminutive polyp (small serrated adenoma) and left-sided diverticulosis. Procedure: Prior to the procedure, a history and physical exam was performed, and patient's medications and allergies were reviewed. The risks, benefits and alternatives of the sedation and procedure were discussed with the patient. All questions were answered and informed consent was obtained. The patient was brought to the procedure room. Patient identification and proposed procedure were verified by the physician and the nurse. The patient was placed in a left lateral decubitus position and the scope was passed under direct vision. Throughout the procedure, the patient's blood pressure, pulse, and oxygen saturations were monitored continuously. The upper GI endoscopy was accomplished without difficulty. The patient tolerated the procedure well. Findings: The scope was passed directly into the upper esophagus and advanced to the third portion of the duodenum. The post bulbar duodenum and duodenal bulb were normal with normal mucosa and conniventes. Cold biopsies were taken from the post bulbar duodenum. The scope was withdrawn through a normal duodenal bulb and pylorus into the stomach. There was moderate bile reflux with some moderate linear reactive gastropathy of the antrum and body of the stomach. Upon retroflexion there was a medium size 3 cm hiatal hernia. There was a inflammatory/sentinel polyp just distal to the GE junction that was removed via cold biopsy. Cold biopsies were taken from the antrum of the stomach to rule out H. pylori. The scope was then withdrawn into the esophagus. There were at least 2 short tongues of salmon-colored mucosa that were biopsied to rule out short segment Colorado's esophagus. There was no evidence of reflux esophagitis. There were tertiary contractions and evidence of moderate esophageal dysmotility. The entire esophagus was dilated to 60 Upper Sorbian/20 mm with a TTS hydrostatic balloon. There was some resistance at the cricopharyngeus (cricopharyngeal spasm). The remainder of the esophageal mucosa was normal. Impression: 1. Cricopharyngeal spasm status post dilation to 20 mm 2. Nonerosive GERD with moderate esophageal dysmotility and 3 cm hiatal hernia 3. Inflammatory polyp GE junction 4. Bile reflux with moderate linear reactive gastropathy Plan: I will follow-up the biopsies. The patient does have functional reflux. This is secondary to gas pressure gradients. I would like for her to do C 13 sucrose breath testing to rule out CSID. If normal, I would still consider enzyme treatment and would check for MIKO. I would also consider changing promotility from erythromycin to domperidone because of tachyphylaxis. She should continue PPI therapy. We will discuss additional treat
== END 2021-05-04 12:44 | disposition home or self-care (01) ==
PROVIDERS: PCP Internal Medicine Adolescent Medicine; Visit Provider Internal Medicine Gastroenterology
PROC: 0DJ08ZZ Inspection of Upper Intestinal Tract, Via Natural or Artificial Opening Endoscopic (ICD-10-PCS; CPT 43235; principal; 2021-05-04 11:00)
DX: J39.2 Other diseases of pharynx (principal); K22.4 Dyskinesia of esophagus; K44.9 Diaphragmatic hernia without obstruction or gangrene; K22.8 Other specified diseases of esophagus; K31.7 Polyp of stomach and duodenum; K31.9 Disease of stomach and duodenum, unspecified; Z87.19 Personal history of other diseases of the digestive system; E78.5 Hyperlipidemia, unspecified; I11.0 Hypertensive heart disease with heart failure; I50.9 Heart failure, unspecified; R00.2 Palpitations; I49.9 Cardiac arrhythmia, unspecified
CPT/HCPCS: 43239; 43249; C1726

== ENCOUNTER → 2021-06-13 10:30 | Outpatient (CLI) | payer OTHER, MEDICARE, SELFPAY ==
[2021-06-13 11:01] LABS: Basophils % 0.5 % (0.1-2.0); Eosinophils # 0.3 K/mm3 (0.0-0.4); Eosinophils % 4.1 % (0.1-12.0); Hemoglobin 13.3 g/dL (12.2-16.2); Lymphocytes # 1.5 K/mm3 (0.7-4.5); Lymphocytes % 19.6 % (10-50); Mean Corpuscular HGB Conc 32.5 g/dL (31.8-35.4); Mean Corpuscular Hemoglobin 32.6 pg (27.0-31.2); Mean Corpuscular Volume 100.3 fl (81-99); Mean Platelet Volume 8.9 fl (7.4-10.4); Monocytes # 0.4 K/mm3 (0.1-1.0); Monocytes % 4.9 % (1.7-9.3); Neutrophils # 5.3 K/mm3 (1.8-7.8); Platelet Count 252 K/mm3 (142-424); Red Blood Count 4.09 M/mm3 (4.20-5.40); Red Cell Distribution Width 12.2 % (11.5-17.5); White Blood Count 7.5 K/mm3 (4.8-10.8)
[2021-06-13 12:12] LABS: Alanine Aminotransferase 17 U/L (12-78); Albumin Level 3.7 g/dl (3.5-5.0); Albumin/Globulin Ratio 1.6 (1.1-1.8); Alkaline Phosphatase 122 U/L (38-126); Aspartate Amino Transferase 27 U/L (14-36); Bilirubin,Total 0.4 mg/dl (0.2-1.3); Blood Urea Nitrogen 16 mg/dl (7-17); Carbon Dioxide 30 mmol/L (22.0-30.0); Chloride 104 mmol/L (98-107); Cholesterol 130 mg/dl (140-200); Estimated Glomerular Filt Rate 100 ml/min (>60); GFR (African American) 121 ML/MIN (>60); Globulin 2.3 g/dL (1.3-3.2); Glucose 93 mg/dl (74-100); Sodium 141 mmol/L (136-145); Triglycerides 121 mg/dl (30-150); Uric Acid 4.5 mg/dl (2.5-6.2); VLDL Cholesterol 24 mg/dL (0-40)
[2021-06-13 12:13] LABS: Chol/HDL Ratio 2.1 (1-3.5); HDL Cholesterol 61 mg/dl (40-60)
[2021-06-13 12:18] LABS: C-Reactive Protein 4.6 mg/L (0-4)
[2021-06-13 12:29] LABS: 25-OH Vitamin D, Total 32.3 ng/mL (30-100)
[2021-06-13 12:45] LABS: Thyroid Stimulating Hormone 1.32 uIU/mL (0.465-4.68)
[2021-06-13 13:20] LABS: Vitamin B12 375 pg/mL (239-931)
[2021-06-13 13:53] LABS: Erythrocyte Sedimentation Rate 21 mm/hr (0-30)
[2021-06-14 07:56] LABS: RA Latex Turbid. <10.0 IU/mL (0.0-13.9)
[2021-06-15 20:13] LABS: Antinuclear Antibodies, IFA Negative (.)
[2021-06-20 16:33] LABS: Antinuclear Antibodies (ANA) NEGATIVE
== END ==
PROVIDERS: Nurse Practitioner Family; Visit Provider Specialist
DX: M46.1 Sacroiliitis, not elsewhere classified (principal); M25.50 Pain in unspecified joint; M19.90 Unspecified osteoarthritis, unspecified site; M47.816 Spondylosis without myelopathy or radiculopathy, lumbar region; M79.89 Other specified soft tissue disorders; I10 Essential (primary) hypertension; E78.5 Hyperlipidemia, unspecified; M85.80 Other specified disorders of bone density and structure, unspecified site; E66.3 Overweight; Z68.33 Body mass index [BMI] 33.0-33.9, adult
CPT/HCPCS: 36415; 80053; 80061; 82306; 82607; 82746; 84443; 84550; 85025; 85651; 86038; 86140; 86225; 86235; 86431

== ENCOUNTER → 2021-07-10 07:58 | Outpatient (CLI) | payer OTHER, MEDICARE, SELFPAY ==
--- NOTE | 2021-07-10 08:00 | MM_ITS ---
PROCEDURE INFORMATION: Exam: MG Bilateral Screening 3D Mammography Exam date and time: 07/10/2021 8:00 AM Age: 66 years old Clinical indication: Encounter for screening mammogram for malignant neoplasm of breast . Family history of breast carcinoma. TECHNIQUE: Imaging protocol: Bilateral screening tomosynthesis and 2D mammography including computer-aided detection (CAD) when performed. COMPARISON: 1. MG MM DIG SCREENING MAMM BI W/CAD 07/04/2020 2:19 PM 2. MG MM DIG MAMM DX UNILAT RT CAD 01/01/2020 9:11 AM 3. MG MM DIG MAMM DX UNILAT RT CAD 07/12/2019 3:09 PM FINDINGS: MAMMOGRAPHY: Breast composition: There are scattered areas of fibroglandular density. Mass: No suspicious masses. Architectural distortion: No suspicious distortion. Calcifications: No suspicious calcifications. Asymmetric density: None. Skin thickening: None. Axillary adenopathy: None. Other findings: Loop recorder device projected over the medial left breast, partially obscuring the 9 o'clock position . Images are best obtainable. IMPRESSION: No mammographic evidence of malignancy. Annual screening is recommended unless otherwise clinically indicated. ASSESSMENT: BI-RADS Category 2: Benign
== END ==
PROVIDERS: PCP Internal Medicine Adolescent Medicine; Visit Provider Internal Medicine Adolescent Medicine
DX: Z12.31 Encounter for screening mammogram for malignant neoplasm of breast (principal)
CPT/HCPCS: 77063; 77067

== ENCOUNTER → 2021-07-15 14:09 | Outpatient (CLI) | payer OTHER, MEDICARE, SELFPAY ==
[2021-07-15 14:27] LABS: Basophils # 0.1 K/mm3 (0-0.2); Basophils % 0.6 % (0.1-2.0); Eosinophils # 0.5 K/mm3 (0.0-0.4); Eosinophils % 5.5 % (0.1-12.0); Hematocrit 40.1 % (37.0-47.0); Hemoglobin 13.1 g/dL (12.2-16.2); Lymphocytes # 2.1 K/mm3 (0.7-4.5); Mean Corpuscular HGB Conc 32.6 g/dL (31.8-35.4); Mean Corpuscular Hemoglobin 32.6 pg (27.0-31.2); Mean Platelet Volume 8.7 fl (7.4-10.4); Monocytes # 0.4 K/mm3 (0.1-1.0); Monocytes % 4.4 % (1.7-9.3); Neutrophils # 5.2 K/mm3 (1.8-7.8); Neutrophils % 63.5 % (37.0-80.0); Platelet Count 284 K/mm3 (142-424); Red Blood Count 4.01 M/mm3 (4.20-5.40); White Blood Count 8.2 K/mm3 (4.8-10.8)
[2021-07-15 15:05] LABS: Alanine Aminotransferase 15 U/L (12-78); Albumin Level 3.5 g/dl (3.5-5.0); Albumin/Globulin Ratio 1.5 (1.1-1.8); Alkaline Phosphatase 113 U/L (38-126); Aspartate Amino Transferase 25 U/L (14-36); Bilirubin,Total 0.2 mg/dl (0.2-1.3); Blood Urea Nitrogen 15 mg/dl (7-17); Carbon Dioxide 28 mmol/L (22.0-30.0); Chloride 107 mmol/L (98-107); Estimated Glomerular Filt Rate 100 ml/min (>60); GFR (African American) 121 ML/MIN (>60); Globulin 2.4 g/dL (1.3-3.2); Glucose 118 mg/dl (74-100); Sodium 141 mmol/L (136-145); Total Protein,Serum 5.9 g/dl (6.3-8.2); Uric Acid 4.8 mg/dl (2.5-6.2)
[2021-07-15 15:10] LABS: C-Reactive Protein 3.5 mg/L (0-4)
[2021-07-15 15:39] LABS: Erythrocyte Sedimentation Rate 17 mm/hr (0-30)
[2021-07-17 11:14] LABS: RA Latex Turbid. <10.0 IU/mL (0.0-13.9)
[2021-07-17 23:13] LABS: Anti-Cyclic Citrullinated Pept 4 units (0-19)
== END ==
PROVIDERS: Visit Provider Internal Medicine Rheumatology
DX: I10 Essential (primary) hypertension (principal); E78.5 Hyperlipidemia, unspecified; M18.9 Osteoarthritis of first carpometacarpal joint, unspecified; M21.371 Foot drop, right foot; K21.9 Gastro-esophageal reflux disease without esophagitis
CPT/HCPCS: 36415; 80053; 84550; 85025; 85651; 86140; 86200; 86431

== ENCOUNTER → 2021-08-07 07:15 | Outpatient (CLI) | payer OTHER, MEDICARE, SELFPAY ==
--- NOTE | 2021-08-07 07:16 | MR_ITS ---
PROCEDURE INFORMATION: Exam: MR Lumbar Spine Without Contrast Exam date and time: 08/07/2021 7:16 AM Age: 66 years old Clinical indication: Low back pain; Additional info: Chronic lumbosacral radiculopathy involving l4-5. PT had a hard time staying still . repeated scans and sent best images. Lbp worse on RT side. RT leg and foot numbness. No injury or trauma. Prior MR 05-28-14, images and report not available on PACS for comparison TECHNIQUE: Imaging protocol: Multiplanar magnetic resonance images of the lumbar spine without intravenous contrast. COMPARISON: 1. NM BTBB NUC BONE SCAN-WHOLE BODY-TBB 06/25/2015 10:29 AM. Prior report not available. 2. ABDPELW CT ABD PELVIS W/ CONTRAST 11/12/2015 9:33:42 AM FINDINGS: Vertebrae: No acute fracture. There is a normal count of 5 [id number] lumbar type vertebrae.Chronic bilateral L5 spondylolysis more clearly seen on prior CT. Chronic minimal grade 1 anterolisthesis at L5-S1. Chronic minimal anterior wedge deformities T11 and T12. Marrow signal pattern overall within normal limits, with some discogenic degenerative change at the inferior L2 endplate, and at the T11-T12 and T12-L1 levels. No aggressive lytic lesion or metastatic pattern. T12-L1 and T11-T12: Both discs appear quite desiccated, degenerated and narrowed with endplate erosions and spondylosis. Shallow disc bulges indent the thecal sac and slightly narrow the central spinal canal at both levels. Asymmetric intraforaminal bulges or protrusions toward the right sagittal series 2, image 5, mildly narrowing the right T11 and T12 foramina. No high-grade stenosis. L1-L2: Bilateral facet arthropathy. Minimal grade 1 retrolisthesis. Prominent intraforaminal disc bulges or protrusions moderately narrowing the L1 foramina greater toward the left. Minimal narrowing of the central spinal canal. L2-L3: Degenerative disc disease with spondylosis and endplate erosions. Bilateral facet arthropathy. Minimal grade 1 retrolisthesis. Moderate narrowing of both L2 foramina, greater toward the left, slight narrowing of the central spinal canal. No high-grade stenosis. L3-L4: Mildly degenerated disc with edematous tiny posterior disc protrusion or annular tear sagittal series 2, image 9 and axial series 7, image 24. Bilateral facet arthropathy. Mild narrowing of the central spinal canal and of both neural foramina. L4-L5: Moderately degenerated disc with posterior disc narrowing, broad posterolateral disc bulging, tiny posterior disc protrusion toward the right series 7, image 29. Prominent bilateral facet arthropathy with small joint effusions, bilateral ligamentum flavum thickening. The central spinal canal appears moderately stenosed series 7, image 28 with small triangular configuration of the thecal sac. The L4 foramina appear stenosed, this appears moderately severe on the right sagittal series 2, image 6 and mild on the left. L5-S1: Chronic pars defects with slight grade 1 anterolisthesis. Mild facet arthropathy. Degenerative signal loss in the disc, with vacuum phenomenon. Mild disc narrowing. Spondylosis. Posterolateral disc bulging greater toward the left; shallow disc-osteophyte complex narrows the left neural foramen series 7, image 33. No significant spinal stenosis. At least moderate stenosis of the left L5 foramen sagittal series 3, image 13, snug for the exiting nerve root. Milder narrowing of the right L5 foramen with horizontal orientation series 3, image 6, but no nerve compression seen in the neutral supine position. A tiny 8 mm synovial cyst at the posterior margin of the left facet joint series 7, image 31. Soft tiss
== END ==
PROVIDERS: PCP Internal Medicine Adolescent Medicine; Visit Provider Specialist
DX: M54.16 Radiculopathy, lumbar region (principal)
CPT/HCPCS: 72148; 76376

== ENCOUNTER → 2021-10-02 07:14 | Outpatient (CLI) | payer OTHER, MEDICARE, SELFPAY ==
--- NOTE | 2021-10-02 07:30 | MR_ITS ---
FINAL REPORT TECHNIQUE: Multiplanar and multisequence MR imaging was obtained through the thoracic spine. CLINICAL HISTORY: SPINAL STENOSIS OF LUMBAR REGION. BACK PAIN WITH ABNORMAL NERVE CONDUCTION TEST. MID BACK PAIN WORSE ON RT SIDE. SYMPTOMS X3-4YRS. FINDINGS: There is normal alignment of the thoracic vertebral bodies. Vertebral body height is preserved. Bone marrow signal intensity is normal without edema or pathologic marrow replacement. Signal intensity within the substance of the spinal cord is normal. No acute paraspinal abnormality is identified. There is multilevel degenerative disc disease with disc space narrowing and disc desiccation. At T3-T4 is an annular bulge with mild central canal stenosis. There is a small left paracentral disc protrusion at T6-T7 but no central canal stenosis or foraminal narrowing. At T9-T10 is a small right paracentral disc protrusion with no central canal stenosis or foraminal narrowing. IMPRESSION: Mild degenerative disc disease with small protrusions as described. Reviewed, Interpreted and Dictated by Margo Juan MD Transcribed by Jose Barros Authenticated by Margo Juan MD on 10/02/2021 09:11:[address] [facility]
--- NOTE | 2021-10-02 08:27 | XR_ITS ---
FINAL REPORT CLINICAL HISTORY: SPINAL STENOSIS OF LUMBAR REGION, C/O RIGHT SIDED LOW BACK PAIN THAT SHOOTS DOWN RIGHT LEG FINDINGS: LUMBAR SPINE Multiple views including flexion and extension were obtained. There is no acute fracture. Dextroscoliosis is noted. There is grade 1 anterior spondylolisthesis of L5 on S1. There is multilevel degenerative disc disease. There is no change in alignment with flexion or extension. There is no acute paraspinal abnormality. IMPRESSION: Multilevel degenerative disc disease. Reviewed, Interpreted and Dictated by Margo Juan MD Transcribed by Jose Barros Authenticated by Margo Juan MD on 10/02/2021 09:32:19 AM [facility]
== END ==
PROVIDERS: PCP Internal Medicine Adolescent Medicine; Visit Provider Neurological Surgery
DX: M48.061 Spinal stenosis, lumbar region without neurogenic claudication (principal); M51.36 Other intervertebral disc degeneration, lumbar region; M43.06 Spondylolysis, lumbar region
CPT/HCPCS: 72114; 72146

== ENCOUNTER → 2021-10-06 08:02 | Outpatient (POV) | payer OTHER, MEDICARE, SELFPAY ==
[2021-10-06 08:43] VITALS: BP 125/77; PULSE 65; RESP 18; O2SAT 97; BMI 36.0
--- NOTE | 2021-10-06 09:29 | HMH.PMCON ---
Assessment and Plan (1) Degenerative joint disease (DJD) of lumbar spine Status: Acute Category: Medical Code(s): M47.816 - Spondylosis without myelopathy or radiculopathy, lumbar region (2) Lumbar radiculopathy Status: Acute Category: Medical Code(s): M54.16 - Radiculopathy, lumbar region (3) Spinal stenosis Status: Acute Category: Medical Code(s): M48.00 - Spinal stenosis, site unspecified (4) Neurogenic claudication Status: Acute Category: Medical Code(s): G95.19 - Other vascular myelopathies - Assessment and plan all Dx Assessment and Plan for all problems:: Patient is referred today for chronic low back pain with radiation into right leg and foot. She has had this pain for 40+ years and has dealt with the pain. She is currently taking anti-inflammatories twice daily and is undergoing physical therapy. She has been referred to Dr. Curry. He did obtain MRI thoracic lumbar and cervical spine. He also obtained x-rays of bilateral hips and lumbar flexion-extension. He has referred the patient for lumbar epidural steroid injection. If the patient does not get relief, per his note, the patient may be a candidate for laminectomy versus foraminotomy. We will schedule patient for lumbar epidural steroid injection L4-L5. She is not on any anticoagulation therapy and is not diabetic. We will follow-up with her afterwards for further evaluation. Possible side effects of corticosteroids have been discussed with the patient. Risks and benefits of the procedure have been explained to the patient. Patient would like to proceed with the procedure. Patient has been instructed to contact the clinic with any concerns before the next appointment. Dr. Valdez has reviewed this note and agrees with this plan of care. This note was dictated using voice recognition software and make contain errors or omissions. HPI - Data of Consult Patient: new to practice Consult date: 10/06/21 Requesting Physician: Chhaya Eugene APRN - Consult Narrative Reason for consult: Low back pain History of present illness: Ms. Houston is a 66 year old female who presents today for consultation for low back pain with radiation into right leg and foot. 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 Patient reports that Dr. Lipcsomb did notice the patient limping and in notable pain without verbalization. As result, the doctor did refer the patient to neurosurgery. Patient does have a history of right foot drop. She does report to have had a fall many years ago requiring a tendon repair. Since then she has had significant pain in her right foot. The pain has progressively worsened. She has had back pain for 40+ years but says that she has dealt with the pain due to her profession. She is having pain at this time that is made worse with standing and walking. She has edema to her right leg and foot after working more than 10 hours throughout the day. She says lying flat helps the pain. She says after lying for 30 to 40 minutes she gets significant relief and is able to stand and walk once again. Today, the patient's pain is a 10 out of 10. She is scheduled for physical therapy which has been scheduled by Dr. Curry. She has not had any injective therapy. She denies any changes in bowel or bladder habit. She describes the pain as burning, shooting and sharp in nature. The pain is from the right low back and to right leg and right foot as well as toes. She denies any saddle anesthesia. The patient does report to get relief when leaning forward. Of note, Dr. De La Cruz did see the patient more than 10 [address] ago [address] place the patient on prednisone 5 mg daily. She has been taking this for 10+ years. Per the patient's MRI she does have wedge deformities noted at T11-T12. Dr. Alatorre is currently weaning the patient down on prednisone. She does report to have had a DEXA scan in the past that required her to start on v
== END ==
PROVIDERS: Visit Provider Clinical Nurse Specialist Family Health
DX: M47.896 Other spondylosis, lumbar region (principal); M54.16 Radiculopathy, lumbar region; M48.00 Spinal stenosis, site unspecified; G95.19 Other vascular myelopathies
CPT/HCPCS: 99202; G0463

== ENCOUNTER 2021-10-09 08:00 | Outpatient (RCR) | payer OTHER, MEDICARE, SELFPAY | END 2021-10-09 08:05 | disposition home or self-care (01) | LOC: PT 08:00 | PROVIDERS: PCP Internal Medicine Adolescent Medicine; Visit Provider Neurological Surgery | DX: M48.061 Spinal stenosis, lumbar region without neurogenic claudication (principal); M51.36 Other intervertebral disc degeneration, lumbar region; M43.06 Spondylolysis, lumbar region | CPT/HCPCS: 97010; 97012; 97014; 97035; 97110; 97163; G0283 ==

== ENCOUNTER 2021-11-10 08:10 | Outpatient (RCR) | payer OTHER, MEDICARE, SELFPAY | END 2021-11-10 09:14 | disposition home or self-care (01) | LOC: PT 08:10 | PROVIDERS: Visit Provider Internal Medicine Adolescent Medicine | DX: M53.9 Dorsopathy, unspecified (principal); G89.29 Other chronic pain | CPT/HCPCS: 97760 ==

== ENCOUNTER 2021-11-13 13:04 | Day surgery (SDC) | payer OTHER, MEDICARE, SELFPAY ==
[2021-11-13 13:17] VITALS: BP 110/60; BP 111/59; PULSE 63; PULSE 66; RESP 20; TEMP 36.4; O2SAT 96; O2SAT 97; BMI 36.3
[2021-11-13 13:24] VITALS: BP 147/69; PULSE 70; RESP 20; O2SAT 98
[2021-11-13 13:27] VITALS: BP 140/60; PULSE 67; RESP 18; O2SAT 97
--- NOTE | 2021-11-13 14:05 | P.PCN_ITS ---
- Procedure Date: 11/13/21 Time: 14:05 Anesthesiologist:: Robbie Valdez MD Complications:: None Pre-procedure Diagnosis:: Degenerative disc disease of lumbar spine with lumbar radiculopathy symptoms Post-procedure Diagnosis:: Same Indications for Procedure:: This patient is a pleasant 66-year-old white female who was referred by Dr. Curry for lumbar epidural steroid injections. She is also doing physical therapy which is helping some he says that she may be a candidate for laminectomy versus foraminotomy depending on response after the lumbar epidural steroid injections. We will plan on a lumbar epidural steroid injection at L4- L5 today to see if this helps with her pain symptoms. Procedure Details:: Informed consent was obtained and the risk and benefits of the procedure was explained to the patient. The patient was taken to the procedure room. The patient was placed prone on the procedure table. The patient was prepped and draped in sterile fashion. C-arm fluoroscopy was used to view the lumbar spine. Skin and subcutaneous tissues were anesthetized using lidocaine. I placed an 18-gauge epidural needle and advanced into the L4-L5 interspace using fluoroscopic guidance and [id number] to air. After confirmation of needle placement in the epidural space with dye I injected 2 mL of lidocaine 1.5% with Depo-Medrol 80 mg. Patient tolerated the procedure well with no complications. Plan and Disposition:: We will follow-up with her in 2 weeks. Will reevaluate symptoms at that time. We will plan on at least 2 lumbar epidural steroid injections prior to evaluating efficacy and referral back to Dr. Curry.
== END 2021-11-13 13:37 | disposition home or self-care (01) ==
LOC: SC.PAINP 13:06
PROVIDERS: PCP Internal Medicine Adolescent Medicine; Visit Provider Anesthesiology
DX: M51.16 Intervertebral disc disorders with radiculopathy, lumbar region (principal); I10 Essential (primary) hypertension; E78.5 Hyperlipidemia, unspecified; K21.9 Gastro-esophageal reflux disease without esophagitis
CPT/HCPCS: 62323; J1040; Q9966

== ENCOUNTER → 2022-01-08 16:23 | Outpatient (CLI) | payer OTHER, MEDICARE, SELFPAY ==
[2022-01-08 17:52] LABS: Anion Gap 9.6 mEq/L (5-15); Blood Urea Nitrogen 15 mg/dl (7-17); Calcium 9.6 mg/dl (8.4-10.2); Carbon Dioxide 30 mmol/L (22.0-30.0); Chloride 104 mmol/L (98-107); Estimated Glomerular Filt Rate 84 ml/min (>60); GFR (African American) 101 ML/MIN (>60); Glucose 108 mg/dl (74-100); Potassium 3.6 mmoL/L (3.5-5.1); Sodium 140 mmol/L (136-145)
[2022-01-08 18:01] LABS: NT Pro Brain Natriuretic Pep. 158 pg/mL (0-125)
== END ==
PROVIDERS: PCP Internal Medicine Adolescent Medicine; Visit Provider Internal Medicine Cardiovascular Disease
DX: R06.09 Other forms of dyspnea (principal); R00.2 Palpitations; I10 Essential (primary) hypertension; R60.9 Edema, unspecified
CPT/HCPCS: 36415; 80048; 83880; 93270

== ENCOUNTER → 2022-01-22 09:54 | Outpatient (CLI) | payer OTHER, MEDICARE, SELFPAY ==
--- NOTE | 2022-01-22 09:55 | CA_ITS ---
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 2D Dimensions LVOT 2.01 cm (M/F) 1.5-2.5 LVEF (Unger's) 61.20 % F: 54 - 74 LV Volume 89.60 mL F: 46 - 106 LV Volume Index 43.07 mL/m2 F: 29 - 61 LA Volume 54.70 mL LA Volume Index 26.29 mL/m2 (M/F) 16-34 M-Mode Dimensions RVDd 2.88 cm (0.9-2.6) LA Diam 3.66 cm (1.9-4.0) LVDd 4.97 cm (3.5-5.7) Ao Diam 2.63 cm (2.0-3.7) LVDs 3.49 cm (3.5-5.7) IVSd 1.18 cm (0.6-1.1) PWd 0.72 cm (0.6-1.1) EF (Teich) 56.70% FS 29.80% EDV (Teich) 116.60 mL ESV (Teich) 50.50 mL LV Diastology E Decel Time 197.00 (160-240 msec) E/A Ratio 1.5 MED E' 8.70 (< 7 cm/sec) E'/MED E' Ratio 11.56 (>14) LAT E' 8.90 (<10 cm/sec) E/LAT E' Ratio 11.30 (>14) Mitral Valve MV E Max Yuniel. 101.00 (40-130 cm/s) MV A Velocity 66.00 (40-130 cm/s) E/A Ratio 1.53 MV Decel. Time 197.00 (160-240 ms) MV PHT 58.00 ms Tricuspid Valve TR P. Velocity 216.00 cm/s RAP Estimate 10.00 mmHg RVSP 28.60 mmHg Left Ventricle Left atrium is qualitatively mildly enlarged, left ventricle is normal size, left ventricle wall thickness is upper limit of the normal, there is preserved left ventricular systolic function, estimated ejection fraction 55% with no regional wall motion abnormality, diastolic parameters are inconclusive. Right Ventricle Right atrium and right ventricle are normal size and contractility. Aortic Valve Aortic valve is minimally thickened and fibrosed, there is no aortic stenosis or aortic insufficiency. Mitral Valve Mitral valve is grossly normal, there is trace mitral regurgitation. Tricuspid Valve Tricuspid grossly normal, there is trace tricuspid regurgitation, calculated right ventricular systolic pressure 28 mmHg. Pulmonic Valve Pulmonic valve is poorly visualized. Great Vessels Aortic root is normal size. Inferior vena cava is poorly visualized. Pericardium No significant pericardial effusion noted. Conclusion 1. Mildly enlarged left atrium, normal left ventricular size, preserved left ventricular systolic function, estimated ejection fraction 55% with no regional wall motion abnormality, diastolic parameters are inconclusive. 2. Trace mitral and tricuspid regurgitation, calculated right ventricular systolic pressure 28 mmHg. 3. No significant pericardial effusion. 4. Inferior vena cava is poorly visualized. Electronically signed by : Danny Sanders MD 01/22/2022 11:12:10
== END ==
PROVIDERS: PCP Internal Medicine Adolescent Medicine; Visit Provider Internal Medicine Cardiovascular Disease
DX: R06.09 Other forms of dyspnea (principal); R00.2 Palpitations; I10 Essential (primary) hypertension; R60.9 Edema, unspecified
CPT/HCPCS: 93306

== ENCOUNTER → 2022-02-17 08:06 | Outpatient (CLI) | payer OTHER, MEDICARE, SELFPAY ==
[2022-02-17 09:29] LABS: Anion Gap 10.7 mEq/L (5-15); Blood Urea Nitrogen 14 mg/dl (7-17); Calcium 9.3 mg/dl (8.4-10.2); Carbon Dioxide 30 mmol/L (22.0-30.0); Chloride 104 mmol/L (98-107); Estimated Glomerular Filt Rate 84 ml/min (>60); GFR (African American) 101 ML/MIN (>60); Glucose 114 mg/dl (74-100); Potassium 3.7 mmoL/L (3.5-5.1); Sodium 141 mmol/L (136-145)
[2022-02-17 09:35] LABS: NT Pro Brain Natriuretic Pep. 143 pg/mL (0-125)
== END ==
PROVIDERS: Visit Provider Internal Medicine Cardiovascular Disease
DX: R06.09 Other forms of dyspnea (principal); R00.2 Palpitations; I10 Essential (primary) hypertension; R60.9 Edema, unspecified
CPT/HCPCS: 36415; 80048; 83880

== ENCOUNTER → 2022-08-27 08:04 | Outpatient (CLI) | payer OTHER, MEDICARE, SELFPAY ==
--- NOTE | 2022-08-27 08:05 | MM_ITS ---
PROCEDURE INFORMATION: Exam: MG Bilateral Screening 3D Mammography Exam date and time: 08/27/2022 8:14 AM Age: 67 years old Clinical indication: Screening examination TECHNIQUE: Imaging protocol: Bilateral Screening tomosynthesis and 2D mammography including computer-aided detection (CAD) when performed. COMPARISON: 1. MG MM DIG SCREENING MAMM BI W/CAD 07/10/2021 8:18 AM 2. MG MM DIG SCREENING MAMM BI W/CAD 07/04/2020 2:19 PM FINDINGS: MAMMOGRAPHY: Breast composition: There are scattered areas of fibroglandular density. Mass: None. Architectural distortion: None. Calcifications: No suspicious calcifications. Asymmetric density: None. Skin thickening: None. Axillary adenopathy: None. IMPRESSION: No mammographic evidence of malignancy. Annual screening is recommended unless otherwise clinically indicated. ASSESSMENT: BI-RADS Category 1: Negative
--- NOTE | 2022-08-27 08:05 | XR_ITS ---
FINAL REPORT TECHNIQUE: Bone densitometry calculations of the lumbar spine and hips were obtained. CLINICAL HISTORY: . post menopausal screening FINDINGS: DEXA BONE DENSITY AXIAL SKELETON Using L1-4, the bone mineral density of the spine is 1.179 g/cm2, corresponding to T-score of 1.2. Note this value may be falsely elevated secondary to sclerosis and degeneration. Using the left hip, the bone mineral density of the femoral neck is 0.760 g/cm2, corresponding to a T-score of -1.4. Using the right hip, the bone mineral density of the femoral neck is 0.701 g/cm2, corresponding to a T-score of -1.3. NOTE: T-score: Standard deviation compared with peak bone mass of young adult mean. *Following the recommendations of the International Society of Bone densitometry, classification of hip BMD is based on the lower of two T-scores; total hip or femoral neck. IMPRESSION: Diminished bone mineral density of the lumbar spine and hips consistent with osteopenia. Reviewed, Interpreted and Dictated by Ryan Ray MD Transcribed by Selene Abdalla Authenticated and [facility]
== END ==
PROVIDERS: PCP Internal Medicine Adolescent Medicine; Visit Provider Obstetrics & Gynecology
DX: Z12.31 Encounter for screening mammogram for malignant neoplasm of breast (principal); Z78.0 Asymptomatic menopausal state; M85.80 Other specified disorders of bone density and structure, unspecified site
CPT/HCPCS: 77063; 77067; 77080

== ENCOUNTER → 2022-09-16 16:44 | Outpatient (CLI) | payer OTHER, MEDICARE, SELFPAY ==
--- NOTE | 2022-09-16 16:50 | XR_ITS ---
PROCEDURE INFORMATION: Exam: XR Left Hip Exam date and time: 09/16/2022 4:52 PM Age: 67 years old Clinical indication: Hip pain; Left hip TECHNIQUE: Imaging protocol: Radiologic exam of the Left hip. Views: 2 or 3 views hip with pelvis when performed. COMPARISON: CR XR HIP LT 2-3V W/PELVIS 09/17/2019 3:18 PM FINDINGS: Bones/joints: No acute fracture or dislocation. Left hip joint space is well preserved. No significant bony arthritic deformities at the left hip joint. Chronic degenerative cortical irregularity of the greater trochanter of the left femur unchanged compared with 2019. Mild bilateral sacroiliitis. Lower lumbar degenerative changes with spondylosis and facet arthropathy.There are no lytic skeletal lesions seen. Soft tissues: No acute findings. Some chronic calcified granulomas in the left buttock. Tiny rounded lower left pelvic calcification consistent with phlebolith, unchanged. IMPRESSION: 1. No acute findings or significant change compared with 09/17/2019. 2. Mild degenerative changes in the hip, lower lumbar spine and sacroiliac joints. 3. Additional nonemergency and chronic findings as above.
== END ==
PROVIDERS: PCP Internal Medicine Adolescent Medicine; Visit Provider Internal Medicine Adolescent Medicine
DX: M25.552 Pain in left hip (principal)
CPT/HCPCS: 73502

== ENCOUNTER 2022-12-03 06:32 | Day surgery (SDC) | payer OTHER, MEDICARE, SELFPAY ==
[2022-11-30 16:09] VITALS: BMI 32.5
[2022-12-03 06:52] VITALS: BP 136/78; PULSE 67; RESP 18; TEMP 36.3; O2SAT 97
--- NOTE | 2022-12-03 07:11 | EXP.ANES.CKL ---
[facility] Disclaimer: The information contained in this section may have been updated after the patient was seen, as this information can be updated by other users. 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 Surgical History History of cholecystectomy History of colonoscopy History of esophagogastroduodenoscopy (EGD) History of foot surgery History of hysterectomy S/P small bowel resection Family History Other Anemia Asthma Cancer Diabetes Heart attack Hyperlipidemia Hypertension Kidney disease Stroke Social History Smoking Status: Never smoker second hand exposure: No alcohol intake: never substance use type: denies use current occupational status: employed Travel in the last 8 weeks: None household members: spouse housing: house current occupational exposures/hazards: No caffeine: Yes [facility] Anesthesia Checklist Patient Identification Patient Identification: Arm Band and Verbal (Name & ) Structural Data Admitted From: Home Planned Operative Procedure/s: EGD/Colonoscopy Consent for Planned Operative Procedure(s) Verified: Yes NPO Status Verified Time NPO: 00:00 Additional verifications Anesthesia Reactions: No Airway Assessment C-Spine Mobility Assessed: Yes TMJ Mobility Assessed: Yes Dentition: Partials Neurological Assessment Level of Consciousness: Awake Hx Seizures: No Numbness or tingling in extremities: No Anesthesia Plan Anesthesia Risk discussed: Yes Anesthesia Plan: Verified ASA Class: II Anesthesia Type: MAC
[2022-12-03 07:21] VITALS: O2SAT 97
--- NOTE | 2022-12-03 08:36 | HMH.SCOPE ---
Procedure: Date: 12/03/22 Patient Date of :: 1955 Procedure Performed:: Esophagogastroduodenoscopy with polypectomy and biopsy Total colonoscopy to terminal ileum with multiple polypectomy Indications:: Patient is a 67-year-old female. She does have a family history of colon cancer in her grandfather. She is undergone multiple previous colonoscopies. She did undergo a small bowel resection for tumor in [place] by Dr. Gallo Valdes. She actually had been sent to the [facility] for that. She has undergone previous upper endoscopy and there is a concern for possible Colorado's. She has significant reflux which has been managed extensively by Dr. Manuel in the past. She had previous colonoscopy in 2019. Last upper endoscopy was performed 05/04/2021. She was found to have some reactive gastropathy and findings of hyperplastic polyp. She had focal intestinal metaplasia. Performing Provider:: Josiah Miller MD Referring Provider:: Scar Lyons MD Sedation:: MAC sedation Procedure:: Patient history was obtained and appropriate physical examination was performed. Patient's medications and allergies were reviewed. Informed consent was obtained after explaining the benefits, alternatives, and risks of the procedure including, but not limited to, bleeding, perforation, missed lesions, and adverse reaction to anesthesia medications. Patient was transported to endoscopy procedure room. Patient was connected to monitoring devices. Throughout the procedure the patient's blood pressure, pulse, and oxygen saturations were monitored continuously. Patient identification and planned procedure were verified by the staff. Attention was first turned to upper endoscopy. Olympus endoscope was inserted via the oropharynx. Overall esophagus appeared normal. Gastroesophageal junction was encountered at approximately 37 cm. There were findings of possible mild intestinal metaplasia. Stomach was cannulated and insufflated. Retroflexion revealed small to moderate sliding hiatal hernia. Near the cardia there were findings of a pedunculated polyp. This may be hyperplastic. This was removed with snare. There was some minor oozing and Hemoclip was deployed. Gastric biopsies were then obtained. There was a tiny inflammatory appearing nodule at the pylorus which was removed with gastric biopsy. Duodenum appeared unremarkable. Endoscope was withdrawn into the distal esophagus and several biopsies were obtained at the gastroesophageal junction to evaluate for possible Colorado's. Endoscope was withdrawn. Patient was re-positioned for colonoscopy. digital anorectal exam was performed. Variable stiffness Olympus colonoscope was inserted and advanced under direct visualization to the cecum. Adequacy of the colonic preparation was noted. The colonoscope was advanced a short distance into the terminal ileum. The colonoscope was then slowly withdrawn while carefully examining the color, texture, anatomy, and integrity of the mucosoa circumferentially. Within the rectum retroflexion was performed. Colonoscope was then withdrawn. Findings:: Possible Colorado's, short segment, at the GE junction Gastroesophageal junction at 37 cm Small to moderate sliding hiatal hernia Mild gastropathy Moderate polyp, removed with snare in its entirety, in the cardia Fair colonic preparation Diminutive cecal polyp removed with biopsy forceps Ascending colon polyp removed with biopsy Descending colon polyp removed with cold snare Distal sigmoid polyp removed with cold snare Diminutive possibly hyperplastic rectosigmoid polyp x3 removed with snare for 1 and biopsy for 2 Recommendations:: Follow-up on histopathology. Likely repeat EGD and colonoscopy 2 years Complications:: None immediately apparent Estimated blood obtained (mL): 2
[2022-12-03 08:38] VITALS: BP 125/76; PULSE 63; RESP 14; TEMP 36.3; O2SAT 97
[2022-12-03 08:48] VITALS: BP 122/80; PULSE 63; RESP 16; O2SAT 98
[2022-12-03 08:58] VITALS: BP 125/87; PULSE 59; RESP 17; O2SAT 99
[2022-12-03 09:08] VITALS: BP 138/76; PULSE 60; RESP 17; TEMP 36.6; O2SAT 100
== END 2022-12-03 09:08 | disposition home or self-care (01) ==
PROVIDERS: PCP Internal Medicine Adolescent Medicine; Visit Provider Surgery
PROC: 0DJ08ZZ Inspection of Upper Intestinal Tract, Via Natural or Artificial Opening Endoscopic (ICD-10-PCS; CPT 43235; principal; 2022-12-03 07:30)
DX: Z12.11 Encounter for screening for malignant neoplasm of colon (principal); D12.0 Benign neoplasm of cecum; K44.9 Diaphragmatic hernia without obstruction or gangrene; K31.9 Disease of stomach and duodenum, unspecified; Z79.899 Other long term (current) drug therapy; D12.2 Benign neoplasm of ascending colon
CPT/HCPCS: 45380; 45385; 43251; 43239; J2704

== ENCOUNTER 2023-02-23 14:01 | Observation (INO) | payer OTHER, MEDICARE, SELFPAY ==
[2023-02-23] VITALS (12 sets, daily range): BP systolic 126–191; BP diastolic 59–89; PULSE 62–78; RESP 15–18; TEMP 36.4–36.9; O2SAT 97–99; BMI 31.0; BMI 31.6; BMI 31.2
--- NOTE | 2023-02-23 13:58 | ECG_ITS ---
APPROVED REPORT Exam: Resting ECG HR:76 bpm ECG Measurements Heart Rate 76 AXES MN 188 P 55 QRSd 100 QRS -17 QT 366 T 30 QTc 397 Conclusion SINUS RHYTHM WITH OCCASIONAL VENTRICULAR PREMATURE COMPLEXES BORDERLINE ECG UNCONFIRMED REPORT Electronically signed by : Scar Lyons MD 02/23/2023 17:32:17
--- NOTE | 2023-02-23 14:08 | XR_ITS ---
FINAL REPORT CLINICAL HISTORY: chest pain x 4 days FINDINGS: SINGLE-VIEW CHEST The heart size is normal. The mediastinum is normal. The lungs are clear. There is no pneumothorax. IMPRESSION: No acute cardiopulmonary process. Reviewed, Interpreted and Dictated by Ryan Ray MD Transcribed by Nadya Seay Authenticated and [facility]
[2023-02-23 14:13] LABS: Coronavirus 19, PCR Not Detected (NotDetected); Influenza A, PCR Not Detected (NotDetected); Influenza B, PCR Not Detected (NotDetected)
[2023-02-23 14:23] LABS: Chloride 102 mmol/L (98-107); Sodium 140 mmol/L (136-145)
[2023-02-23 14:24] LABS: Potassium 3.8 mmoL/L (3.5-5.1)
[2023-02-23 14:26] LABS: Blood Urea Nitrogen 17 mg/dl (7-17); Creatinine Clearance Estimated 81 mL/min (50-200); Estimated Glomerular Filt Rate 72 ml/min (>60); GFR (African American) 87 ML/MIN (>60)
[2023-02-23 14:27] LABS: Anion Gap 11.8 mEq/L (5-15); Calcium 9.4 mg/dl (8.4-10.2); Carbon Dioxide 30 mmol/L (22.0-30.0); Glucose 157 mg/dl (74-100)
[2023-02-23 14:30] LABS: Basophils # 0.1 K/mm3 (0-0.2); Basophils % 0.4 % (0.1-2.0); Eosinophils # 0.1 K/mm3 (0.0-0.4); Hemoglobin 13.8 g/dL (12.2-16.2); Lymphocytes # 2.2 K/mm3 (0.7-4.5); Mean Corpuscular HGB Conc 32.1 g/dL (31.8-35.4); Mean Corpuscular Hemoglobin 31.5 pg (27.0-31.2); Mean Corpuscular Volume 98.3 fl (81-99); Mean Platelet Volume 9.6 fl (7.4-10.4); Monocytes # 0.4 K/mm3 (0.1-1.0); Monocytes % 3.6 % (1.7-9.3); Neutrophils # 9.3 K/mm3 (1.8-7.8); Platelet Count 282 K/mm3 (142-424); Red Blood Count 4.37 M/mm3 (4.20-5.40); Red Cell Distribution Width 12.5 % (11.5-17.5); White Blood Count 12.1 K/mm3 (4.8-10.8)
--- NOTE | 2023-02-23 14:32 | HMH.EDGENADL ---
Discharge Plan Disposition Patient Disposition: Admitted Clinical Impressions Clinical Impression: Atypical chest pain Discharge ED Provider: Karo Almodovar General Adult HPI General Chief complaint: Chest Pain Stated complaint: chest pain Time Seen by Provider: 02/23/23 14:32 History of Present Illness HPI narrative: Patient is a 67-year-old female presenting with chest pain. Over the last week she has had migratory chest pain which initially began subscapular on the right side migrating to the substernal aspect and into the left breast radiating to her left side of her neck. She was going to be directly admitted with Dr. Nguyen but developed significant worsening of her chest pain which is been ongoing and unchanged since 3 days ago and decided to be checked then quickly to make sure she did not have a STEMI. 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 She has not had any changing of symptoms with any food. No position allergy to this, there is been no pleuritic component, and has been nonexertional. She did have a heart cath in the past with a failed stress test with Dr. Enriquez but has not had one for several years. She was given 2 doses of nitroglycerin prior to my assessment and is completely chest pain-free after administration of those medications. Related Data Home Medications Medication Instructions Recorded Confirmed aspirin 81 mg tablet,delayed 81 mg PO DAILY Blood thinner 05/12/18 02/23/23 release (Adult Low Dose Aspirin) celecoxib 200 mg capsule (Celebrex) 200 mg PO BID Arthritis 05/12/18 02/23/23 hydrocodone 5 mg-acetaminophen 325 1 tab PO Q6H PRN pain 05/12/18 02/23/23 mg tablet ondansetron HCl 4 mg tablet 4 mg PO TID PRN Nausea 01/04/19 02/23/23 (Zofran) potassium chloride 20 mEq 20 meq PO DAILY Supplement 05/30/20 02/23/23 tablet,extended release(part/cryst) gabapentin 300 mg capsule 300 mg PO HS Pain 04/14/21 02/23/23 omeprazole 40 mg capsule,delayed 40 mg PO BID heart burn 04/14/21 02/23/23 release vortioxetine 10 mg tablet 10 mg PO DAILY Depression 04/14/21 02/23/23 (Trintellix) magnesium oxide 250 mg PO DAILY Supplement 05/14/21 02/23/23 bisoprolol fumarate 5 mg tablet 5 mg PO BID BP/HR 11/30/22 02/23/23 spironolactone 25 mg tablet 25 mg PO DAILY Fluid 11/30/22 02/23/23 Previous Rx's Medication Instructions Recorded atorvastatin 40 mg tablet 40 mg PO DAILY Cholesterol #90 tabs 05/03/22 furosemide 20 mg tablet (Lasix) 40 mg PO DAILY Edema #180 tabs 05/03/22 raloxifene 60 mg tablet 60 mg PO DAILY Arthritis #90 tabs 07/23/22 Allergies Allergy/AdvReac Type Severity Reaction Status Date / Time acetaminophen [From PERCOCET] Allergy Unknown NA-HALLUCIN Verified 12/03/22 06:48 ATIONS amlodipine [From Norvasc] Allergy Unknown I-HIVES Verified 12/03/22 06:48 oxycodone [From PERCOCET] Allergy Unknown NA-HALLUCIN Verified 12/03/22 06:48 ATIONS [facility] Disclaimer: The information contained in this section may have been updated after the patient was seen, as this information can be updated by other users. 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
[2023-02-23 14:41] LABS: Troponin I < 0.01 ng/ml (0.00-0.034)
--- NOTE | 2023-02-23 14:44 | PC.NURSE ---
calling dr peña to speak with german chisholm
--- NOTE | 2023-02-23 15:16 | PC.NURSE ---
ECHO AT BEDSIDE
--- NOTE | 2023-02-23 15:27 | PC.NURSE ---
CALLED CARE MANAGEMENT FOR ADMISSION
--- NOTE | 2023-02-23 16:45 | PC.NURSE ---
arrived by w/c from ED
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
[2023-02-23 21:06] LABS: Troponin I < 0.01 ng/ml (0.00-0.034)
[2023-02-24] VITALS: BP 122/67; PULSE 59; PULSE 60; RESP 18; TEMP 36.7; O2SAT 97
--- NOTE | 2023-02-24 | CA_ITS ---
APPROVED REPORT Exam: Pharmacologic Technologist: Odette Ferrera, Ht: 5 ft 5 in Wt: 204 lbs BSA: 1.99 m2 HR: 61 bpm BP: 136/72 mmHg Rhythm: NSR Medical History Medications: Omeprazole,,,,, Aspirin,,,,, Hydrocodone,,,,, Gabapentin,,,,, Atorvastatin,,,,, BisOPROLOL,,,,, Celecoxib,,,,, SpirOnolactone,,,,, Raloxifene,,,,, Zofran,,,,, Potassium,,,,, VoRtioxetine,,,,, Stress Test Details Test: LEXISCAN Reason for pharmacologic stress test: physical limitation. HR Resting HR: 71 bpm Max Heart Rate (APMHR): 153 bpm Max HR Achieved: 96 bpm Target HR (85% APMHR): 130 bpm % of APMHR: 63 Recovery HR: 71 bpm BP Resting BP: 136.0/72.0 mmHg Max BP: 144.0/75.0 mmHg Recovery BP: 140.0/70.0 mmHg ECG Resting ECG: NSR, PVC, slow R wave progression, non-specific T-wave changes in inferolateral leads Stress ECG: No change Arrhythmia: VPC's Recovery ECG: No change Recovery Arrhythmia: VPC Clinical Exercise duration: 04:00 min Highest Stage Achieved: Exercise capacity: n/a METs Stress ECG Conclusion Symptoms: SOA, dizziness, malaise. No CP. Arrhythmias/Ectopy: Occasional PVCs at stress and during recovery. Baseline ECG: NSR, PVC, slow R wave progression, non-specific T-wave changes in inferolateral leads ST-T Changes: No significant changes. Conclusion: Unremarkable Lexiscan stress. Myoview images reported separately. Test Summary REST . . . . . . . Resting REST 06:53 . . 71 . 136/ 72 . . Stage 1 01:00 . . 95 . . . . Stage 2 01:00 . . 86 . 142/ 74 . . Stage 3 01:00 . . 77 . 133/ 71 . . Stage 4 01:00 . . 75 . 142/ 68 . Stop exercise at 04:00 RECOVERY 01:00 . . 78 . . . . RECOVERY 02:00 . . 74 . . . . RECOVERY 03:00 . . 73 . 144/ 75 . . RECOVERY 03:19 . . 71 . 140/ 70 . . Electronically signed by : Ela Tobin, 02/24/2023 14:35:00
[2023-02-24 04:00] VITALS: BP 109/54; PULSE 57; PULSE 60; RESP 16; TEMP 36.2; O2SAT 98; BMI 31.8
--- NOTE | 2023-02-24 04:33 | PC.NURSE ---
Pt. is aox 4, up astol, 90' on RA, 20G L AC SL, Cardiac stress test scheduled for 11:00 am.
[2023-02-24 08:00] VITALS: BP 120/77; PULSE 63; PULSE 74; RESP 18; TEMP 36.4; O2SAT 98
--- NOTE | 2023-02-24 08:24 | NM_ITS ---
APPROVED REPORT Exam: Nuclear Stress Test Indication: chest pain..soa..fatigue..palpitations Patient Location: Inpatient Stress Tech: Odette Dasilva ID Tech:MORGAN HardenRadha RT(R)(N) Ht: 5 ft 8 in Wt: 204 lbs Bra Size: 38c HR: 71 bpm BP: 136/72 mmHg BSA: 2.06 m2 TID: 1.05 BMI: 31.0 History: chest pain..soa..fatigue..palpitations Procedure: Patient received 0.4 mg of intravenous Lexiscan, resting heart rate 71 bpm, resting blood pressure 136/72 mmHg, with Lexiscan maximum heart rate achieved was 96 bpm which is 85 % of the maximum predicted heart rate and blood pressure was 144/75 mmHg. With Lexiscan, patient denied any complaint of chest pain. Cardiac Stress and Resting SPECT Images: Cardiac Stress and Resting SPECT images were obtained using technetium 99m Myoview 31.2 mCi stress and 10.97 mCi at rest. Resting and supine stress imaging demonstrate a mild fixed perfusion defect in the anterior LV wall. This is no longer visualized in prone stress imaging. Findings are consistent with soft tissue attenuation. Gated imaging demonstrates normal global and regional LV systolic function. LVEF is calculated at 63% Conclusion: Breast attenuation is present. No fixed or reversible defects, consistent with absence of reversible ischemia. Gated imaging demonstrates normal global and regional LV systolic function. LVEF is calculated at 63% Electronically signed by : Ela Tobin, 02/24/2023 14:39:01
--- NOTE | 2023-02-24 08:29 | HMH.PHAINT1 ---
Pharmacy Intervention Comments: Home medication list verified by list from outside pharmacy and list from Dr. Lyons's office.
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
--- NOTE | 2023-02-25 12:44 | CARE MANAGER ---
Called and spoke with patient regarding recent discharge. She stated that she is doing well, no complaints or concerns at time of call.
== END 2023-02-24 15:30 | disposition home or self-care (01) ==
LOC: ER 14:49 → 2ND 15:43
PROVIDERS: Admitting Provider Internal Medicine Adolescent Medicine; Emergency Provider Student in an Organized Health Care Education/Training Program; PCP Internal Medicine Adolescent Medicine; Visit Provider Internal Medicine Adolescent Medicine
DX: I20.9 Angina pectoris, unspecified (principal); R06.09 Other forms of dyspnea; R00.2 Palpitations; Z82.49 Family history of ischemic heart disease and other diseases of the circulatory system; Z79.899 Other long term (current) drug therapy
CPT/HCPCS: 36415; 71045; 78452; 80048; 84484; 85025; 87635; 87636; 93005; 93017; 93306; 99285; A9502; C9803; G0378; J2785; U0003; U0005

== ENCOUNTER → 2023-04-16 09:28 | Outpatient (CLI) | payer OTHER, MEDICARE, SELFPAY ==
[2023-04-16 10:03] LABS: Basophils # 0.1 K/mm3 (0-0.2); Basophils % 0.6 % (0.1-2.0); Eosinophils # 0.4 K/mm3 (0.0-0.4); Eosinophils % 5.1 % (0.1-12.0); Hematocrit 41.5 % (37.0-47.0); Hemoglobin 13.2 g/dL (12.2-16.2); Lymphocytes # 2.2 K/mm3 (0.7-4.5); Lymphocytes % 25.9 % (10-50); Mean Corpuscular HGB Conc 31.8 g/dL (31.8-35.4); Mean Corpuscular Hemoglobin 31.1 pg (27.0-31.2); Mean Corpuscular Volume 97.7 fl (81-99); Mean Platelet Volume 8.9 fl (7.4-10.4); Monocytes # 0.6 K/mm3 (0.1-1.0); Monocytes % 6.9 % (1.7-9.3); Neutrophils # 5.1 K/mm3 (1.8-7.8); Neutrophils % 61.6 % (37.0-80.0); Platelet Count 281 K/mm3 (142-424); Red Blood Count 4.25 M/mm3 (4.20-5.40); Red Cell Distribution Width 12.5 % (11.5-17.5); White Blood Count 8.3 K/mm3 (4.8-10.8)
[2023-04-16 10:36] LABS: Alanine Aminotransferase 22 U/L (12-78); Albumin Level 3.7 g/dl (3.5-5.0); Albumin/Globulin Ratio 1.7 (1.1-1.8); Alkaline Phosphatase 117 U/L (38-126); Anion Gap 9.3 mEq/L (5-15); Aspartate Amino Transferase 28 U/L (14-36); Bilirubin,Total 0.4 mg/dl (0.2-1.3); Blood Urea Nitrogen 16 mg/dl (7-17); Calcium 9.3 mg/dl (8.4-10.2); Carbon Dioxide 30 mmol/L (22.0-30.0); Chloride 107 mmol/L (98-107); Chol/HDL Ratio 2.4 (1-3.5); Cholesterol 133 mg/dl (140-200); Estimated Glomerular Filt Rate 83 ml/min (>60); GFR (African American) 101 ML/MIN (>60); Globulin 2.2 g/dL (1.3-3.2); Glucose 88 mg/dl (74-100); HDL Cholesterol 56 mg/dl (40-60); Potassium 4.3 mmoL/L (3.5-5.1); Sodium 142 mmol/L (136-145); Total Protein,Serum 5.9 g/dl (6.3-8.2); Triglycerides 113 mg/dl (30-150); VLDL Cholesterol 23 mg/dL (0-40)
[2023-04-16 10:38] LABS: Erythrocyte Sedimentation Rate 12 mm/hr (0-30)
[2023-04-16 10:48] LABS: Direct LDL Cholesterol 61.54 mg/dL (100-129)
[2023-04-16 10:53] LABS: Free Thyroxine Index 2.5 ug/dL (5.93-13.13); T4 (Thyroxine) 7.8 ug/dl (5.53-11.0); Triiodothryronine (T3) Uptake 32 % (23.5-40.5)
[2023-04-16 10:54] LABS: 25-OH Vitamin D, Total 48.3 ng/mL (30-100)
[2023-04-16 11:07] LABS: Thyroid Stimulating Hormone 0.13 uIU/mL (0.465-4.68)
[2023-04-16 11:28] LABS: Vitamin B12 442 pg/mL (239-931)
[2023-04-16 11:43] LABS: Ferritin 41.8 ng/ml (11.1-264)
== END ==
PROVIDERS: PCP Internal Medicine Adolescent Medicine; Visit Provider Internal Medicine Adolescent Medicine
DX: M35.3 Polymyalgia rheumatica (principal); E78.5 Hyperlipidemia, unspecified; G60.9 Hereditary and idiopathic neuropathy, unspecified; G25.81 Restless legs syndrome; E66.9 Obesity, unspecified; Z68.31 Body mass index [BMI] 31.0-31.9, adult; R06.09 Other forms of dyspnea; R07.9 Chest pain, unspecified
CPT/HCPCS: 36415; 80053; 80061; 82306; 82607; 82728; 84436; 84443; 84479; 85025; 85651

== ENCOUNTER → 2023-09-06 06:49 | Outpatient (CLI) | payer OTHER, MEDICARE, SELFPAY ==
[2023-09-06 07:16] LABS: Basophils # 0.1 K/mm3 (0-0.2); Basophils % 0.7 % (0.1-2.0); Eosinophils # 0.3 K/mm3 (0.0-0.4); Eosinophils % 3.8 % (0.1-12.0); Hematocrit 42.8 % (37.0-47.0); Hemoglobin 14.6 g/dL (12.2-16.2); Lymphocytes # 2.4 K/mm3 (0.7-4.5); Lymphocytes % 26.5 % (10-50); Mean Corpuscular HGB Conc 34.2 g/dL (31.8-35.4); Mean Corpuscular Hemoglobin 33.5 pg (27.0-31.2); Mean Platelet Volume 9.5 fl (7.4-10.4); Monocytes # 0.5 K/mm3 (0.1-1.0); Monocytes % 5.4 % (1.7-9.3); Neutrophils # 5.7 K/mm3 (1.8-7.8); Neutrophils % 63.7 % (37.0-80.0); Platelet Count 254 K/mm3 (142-424); Red Blood Count 4.37 M/mm3 (4.20-5.40); Red Cell Distribution Width 12.7 % (11.5-17.5); White Blood Count 8.9 K/mm3 (4.8-10.8)
[2023-09-06 08:09] LABS: Erythrocyte Sedimentation Rate 16 mm/hr (0-30)
[2023-09-06 08:26] LABS: Chloride 103 mmol/L (98-107)
[2023-09-06 08:27] LABS: Potassium 3.5 mmoL/L (3.5-5.1); Sodium 139 mmol/L (136-145)
[2023-09-06 08:29] LABS: Alanine Aminotransferase 26 U/L (12-78); Aspartate Amino Transferase 33 U/L (14-36); Blood Urea Nitrogen 21 mg/dl (7-17); Estimated Glomerular Filt Rate 71 ml/min (>60); GFR (African American) 86 ML/MIN (>60)
[2023-09-06 08:30] LABS: Albumin Level 4.4 g/dl (3.5-5.0); Albumin/Globulin Ratio 1.9 (1.1-1.8); Alkaline Phosphatase 96 U/L (38-126); Anion Gap 10.5 mEq/L (5-15); Bilirubin,Total 0.4 mg/dl (0.2-1.3); Calcium 9.1 mg/dl (8.4-10.2); Carbon Dioxide 29 mmol/L (22.0-30.0); Cholesterol 199 mg/dl (140-200); Globulin 2.3 g/dL (1.3-3.2); Glucose 99 mg/dl (74-100); HDL Cholesterol 67 mg/dl (40-60); Total Protein,Serum 6.7 g/dl (6.3-8.2); Triglycerides 121 mg/dl (30-150); VLDL Cholesterol 24 mg/dL (0-40)
[2023-09-06 08:41] LABS: Direct LDL Cholesterol 101.21 mg/dL (100-129)
[2023-09-06 08:45] LABS: Triiodothryronine (T3) Uptake 33 % (23.5-40.5)
[2023-09-06 08:46] LABS: Free Thyroxine Index 2.2 ug/dL (5.93-13.13); T4 (Thyroxine) 6.6 ug/dl (5.53-11.0)
[2023-09-06 09:00] LABS: Thyroid Stimulating Hormone 0.02 uIU/mL (0.465-4.68)
[2023-09-06 10:59] LABS: 25-OH Vitamin D, Total 71.4 ng/mL (30-100)
[2023-09-06 11:32] LABS: Vitamin B12 809 pg/mL (239-931)
== END ==
PROVIDERS: PCP Internal Medicine Adolescent Medicine; Visit Provider Internal Medicine Adolescent Medicine
DX: M35.3 Polymyalgia rheumatica (principal); E78.5 Hyperlipidemia, unspecified; G60.9 Hereditary and idiopathic neuropathy, unspecified; E66.9 Obesity, unspecified; Z68.31 Body mass index [BMI] 31.0-31.9, adult; M85.89 Other specified disorders of bone density and structure, multiple sites; Z79.899 Other long term (current) drug therapy
CPT/HCPCS: 36415; 80053; 80061; 82306; 82607; 84436; 84443; 84479; 85025; 85651

== ENCOUNTER 2023-10-12 16:37 | Outpatient (CLI) | payer OTHER, MEDICARE, SELFPAY ==
--- NOTE | 2023-10-12 16:40 | MM_ITS ---
PROCEDURE INFORMATION: Exam: MG Bilateral Screening 3D Mammography Exam date and time: 10/12/2023 4:42 PM Age: 68 years old Clinical indication: Screening examination TECHNIQUE: Imaging protocol: Bilateral Screening tomosynthesis and 2D mammography including computer-aided detection (CAD) when performed. COMPARISON: 1. MG MM DIG SCREENING MAMM BI W/CAD 08/27/2022 8:14 AM 2. MG MM DIG SCREENING MAMM BI W/CAD 07/10/2021 8:18 AM 3. MG MM DIG SCREENING MAMM BI W/CAD 07/04/2020 2:19 PM 4. MG MM DIG MAMM DX UNILAT RT CAD 01/01/2020 9:11 AM FINDINGS: MAMMOGRAPHY: Breast composition: There are scattered areas of fibroglandular density. Mass: None. Architectural distortion: None. Calcifications: No suspicious calcifications. Asymmetric density: None. Skin thickening: None. Axillary adenopathy: None. Other findings: Lower inner quadrant loop recorder, limits evaluation and accentuates the importance of clinical breast exam. IMPRESSION: No mammographic evidence of malignancy. Annual screening is recommended unless otherwise clinically indicated. ASSESSMENT: BI-RADS Category 1: Negative
== END 2023-10-12 23:59 ==
LOC: RAD 16:37
PROVIDERS: PCP Internal Medicine Adolescent Medicine; Visit Provider Internal Medicine Adolescent Medicine
DX: Z12.31 Encounter for screening mammogram for malignant neoplasm of breast (principal)
CPT/HCPCS: 77063; 77067

== ENCOUNTER 2023-11-08 08:52 | Outpatient (CLI) | payer OTHER, MEDICARE, SELFPAY ==
--- NOTE | 2023-11-08 08:53 | CT_ITS ---
APPROVED REPORT Shank Rander: CLINICAL INDICATION Epigastric Pain TECHNIQUE Image Acquisition: A 128 slice MDCT scanner ([employer] SkillSlatea View) was used for data acquisition. A noncontrast coronary calcium scan was performed. A CT attenuation threshold of 130 Hounsfield units (HU) was used for the detection of calcium in contiguous voxels of 1 sq mm in area to be counted as individual lesions. Bolus tracking in the ascending aorta with a threshold of 180 HU was performed. Immediately afterwards, ECG synchronized cardiac CT was then performed from the cardiac base to apex using retrospective gating with ECG tube current modulation. A total of 85 mL of Isovue 370 mg/mL contrast medium was administered at 5 mL/sec followed by a saline flush using a biphasic injection protocol. A tube voltage of 120 KVp was used. The patient received the following medications prior to the cardiac CT. 0.8 mg of sublingual nitroglycerin The average heart rate at the time of acquisition was 55 bpm and regular. Image Reconstruction Transaxial images were reconstructed at 0.67 mm slide thickness. Data was reviewed interactively on an advanced workstation capable of 2 and 3-dimensional displays in all conventional reconstruction formats, including multiplanar reformations, maximum intensity projections, curved multiplanar reformations, and volume rendered reconstructions. When applicable, selected routine images describing the relevant coronary anatomy and pathology were saved and sent to PACS. Complications None Technical Quality Overall image quality was good. Coronary artery opacification was adequate. Total DLP (Dose-Length Product) is 1340.0 mGy-cm. The reported value represents the total of one or more individual components during the CT acquisition of this date and at this time, and as such, the same value may appear in more than one CT report depending on the interpreting/reporting physicians. COMPARISON None FINDINGS CT Coronary Calcium Scoring LMA (Left Main Artery) = 0 LAD (Left Anterior Descending) = 0 LCX (Left Coronary Circumflex) = 0 RCA (Right Coronary Artery) = 0 Total Calcium Score = 0 using the AJ-130 method. The interpretation of the calcium heart score is based on the following continuum*: 0 = no calcified plaque detected (risk of coronary artery disease is very low ??? less than 5%) 1-10 = calcium detected in extremely minimal levels (risk of coronary diseases is still low ??? less than 10%) 11-100 = mild levels of plaque detected with certainty (mild or minimal narrowing of heart arteries is likely) 101-400 = definite,at least moderate levels of plaque detected (relatively high risk of a heart attack within 3-5 years) >401-999 = extensive levels of plaque detected (high risk of heart attack, high levels of vascular disease are present, high likelihood of at least one significant coronary narrowing) *The calcium heart score quantifies the burden of coronary calcification/plaque in the coronary arteries. The calcium heart score is not able to evaluate the presence or burden of non-calcified (i.e. soft) plaque. There is identifiable mild calcification in the ascending thoracic aorta. Coronary CT Angiography The coronary arterial system is right dominant. Quantitative Stenosis Grading: Left Main (LM): The left main originates normally from the left sinus of Valsalva. The LM bifurcates into the left anterior descending artery and left circumflex artery. The LM is patent with no evidence of atherosclerosis. Left Anterior Descending (LAD) and Diagonal Branches: The LAD gives off 2 diagonal branch(es). The LAD and its branches are patent with no evidence of atherosclerosis. There is no evidence of LAD bridge. Left Circumflex (LCX) and Obtuse Marginals (OM): The LCX gives off 1 Obtuse Marginal (OM) branch. The LCX and its branches are patent with no evidence of atherosclerosis. Right Coronary Artery (RCA): The RCA originates normally from the right sinus of Valsalva. The RCA gives off a posterior descending artery (PDA) and posterolateral (PL) branches. The RCA and its branches are patent with no evidence of atherosclerosis. Non-Coronary Cardiac Findings: Analysis of the left ventricular (LV) structure and function was performed after 3-D reconstruction of the LV from axial images, with user-corrected automatic contouring for assessment of LV volumes and user-defined reconstruction from oblique planes for measurement of 3-D cardiac structure and function. LVEDV: 171 mL LVESV: 76 mL SV: 95 mL LVEF: 55.6% -The left ventricle is normal in size with normal left ventricular systolic function. -There is no left atrial appendage filling defect. Two right pulmonary veins and two left pulmonary veins drain normally into the left atrium. -No pericardial thickening or calcification. -Central and branch pulmonary arteries in the [id number] are unremarkable. -Thoracic aorta within the visualized thoracic aortic-branches in the [id number] is unremarkable. Extracardiac Structures Hiatal hernia is incidentally noted. IMPRESSION -Absent coronary calcification with an Agatston score = 0 using the AJ-130 method. -No evidence of significant flow-limiting atherosclerosis of the coronary arteries. -No evidence of coronary anomalies. -CAD-RADS 0. Management recommendations per ACC/AHA guidelines*, as clinically appropriate. -Hiatal hernia is incidentally noted. *Recommendations: CAD RADS 0: Reassurance. Consider non-atherosclerotic causes of chest pain. CAD RADS 1: Consider non-atherosclerotic causes of chest pain. Consider preventive therapy and risk factor modification. CAD RADS 2: Consider non-atherosclerotic causes of chest pain. Consider preventive therapy and risk factor modification, particularly for patients with nonobstructive plaque in multiple segments. CAD RADS 3: Consider further functional testing. Consider symptom-guided anti-ischemic and preventive pharmacotherapy as well as risk factor modification per published guideline statements. CAD RADS 4A: Consider further functional testing or invasive coronary angiography with revascularization per published guideline statements. Consider symptom-guided anti-ischemic and preventive pharmacotherapy as well as risk factor modification per published guideline statements. CAD RADS 4B: Invasive coronary angiography recommended with revascularization per published guideline statements. Consider symptom-guided anti-ischemic and preventive pharmacotherapy as well as risk factor modification per published guideline statements. CAD RADS 5: Consider invasive angiography and/or viability assessment with revascularization per published guideline statements. Consider symptom-guided anti-ischemic and preventive pharmacotherapy as well as risk factor modification per published guideline statements. CRITICAL RESULT None COMMUNICATION Per this written report The coronary and cardiac findings of this CCTA were reviewed, reported, and signed by Eagle Tobin MD ([employer]) Conclusion Electronically signed by : Ela Tobin MD 11/08/2023 11:08:25
[2023-11-08 09:33] VITALS: BP 132/73; PULSE 63; RESP 18; O2SAT 98
[2023-11-08 09:46] LABS: Chloride 106 mmol/L (98-107)
[2023-11-08 09:47] LABS: Potassium 3.5 mmoL/L (3.5-5.1); Sodium 139 mmol/L (136-145)
[2023-11-08 09:50] LABS: Anion Gap 5.5 mEq/L (5-15); Blood Urea Nitrogen 16 mg/dl (7-17); Carbon Dioxide 31 mmol/L (22.0-30.0); Creatinine Clearance Estimated 74 mL/min (50-200); Estimated Glomerular Filt Rate 71 ml/min (>60); GFR (African American) 86 ML/MIN (>60); Glucose 99 mg/dl (74-100)
[2023-11-08 10:12] VITALS: BP 132/83; PULSE 60; RESP 18; O2SAT 99
[2023-11-08] MEDS: NITROGLYCERIN 0.4MG SL TABLET 0.800000000000000044 MG SL (10:12)
[2023-11-08 10:16] VITALS: BP 109/65; PULSE 57; RESP 18; O2SAT 99
[2023-11-08 10:25] VITALS: BP 106/65; PULSE 57; RESP 18; O2SAT 96
[2023-11-08 10:35] VITALS: BP 129/67; PULSE 61; RESP 18; O2SAT 97
[2023-11-08] MEDS: SODIUM CHLORIDE 0.9% 10ML SYR (RAD ONLY) 10 ML IV (10:37)
[2023-11-08] MEDS: IOPAMIDOL-370 (76%);100ML BOTTLE 85 ML IV (10:37)
[2023-11-08] MEDS: 0.9 % SODIUM CHLORIDE 50 ML VIAL IV (10:37)
== END 2023-11-08 10:35 | disposition home or self-care (01) ==
PROVIDERS: PCP Internal Medicine Adolescent Medicine; Visit Provider Nurse Practitioner Family
DX: R06.09 Other forms of dyspnea (principal); R07.9 Chest pain, unspecified; R60.0 Localized edema; Z82.49 Family history of ischemic heart disease and other diseases of the circulatory system
CPT/HCPCS: 75571; 75574; 80048; Q9967

== ENCOUNTER 2023-12-05 12:16 | Outpatient (CLI) | payer OTHER, MEDICARE, SELFPAY ==
--- NOTE | 2023-12-05 12:19 | XR_ITS ---
FINAL REPORT CLINICAL HISTORY: souch, possible aspiration COMPARISON: 02/23/2023 FINDINGS: Two views of the chest were obtained. A loop recorder is once again identified. The heart size and pulmonary vascularity are within normal limits. The mediastinum is normal. A mild right base opacity is present, favor scar or atelectasis. There is no pneumothorax. The bony thorax is intact. IMPRESSION: Small right base opacity, favor scar or atelectasis. Reviewed, Interpreted and Dictated by Josiah Barragan III, MD Transcribed by Alysia Dillon Authenticated and [facility]
== END 2023-12-05 23:59 ==
LOC: LAB 12:16
PROVIDERS: PCP Internal Medicine Adolescent Medicine; Visit Provider Nurse Practitioner Family
DX: R05.9 Cough, unspecified (principal); T17.908A Unspecified foreign body in respiratory tract, part unspecified causing other injury, initial encounter
CPT/HCPCS: 71046

== ENCOUNTER 2024-02-13 10:15 | Outpatient (CLI) | payer OTHER, MEDICARE, SELFPAY ==
[2024-02-13 10:34] LABS: Basophils # 0.1 K/mm3 (0-0.2); Basophils % 0.5 % (0.1-2.0); Eosinophils # 0.2 K/mm3 (0.0-0.4); Hematocrit 44.5 % (37.0-47.0); Hemoglobin 14.4 g/dL (12.2-16.2); Lymphocytes # 1.5 K/mm3 (0.7-4.5); Lymphocytes % 16.4 % (10-50); Mean Corpuscular HGB Conc 32.4 g/dL (31.8-35.4); Mean Corpuscular Hemoglobin 32.6 pg (27.0-31.2); Mean Corpuscular Volume 100.5 fl (81-99); Monocytes # 0.4 K/mm3 (0.1-1.0); Monocytes % 4.4 % (1.7-9.3); Neutrophils # 6.9 K/mm3 (1.8-7.8); Neutrophils % 76.6 % (37.0-80.0); Platelet Count 272 K/mm3 (142-424); Red Blood Count 4.43 M/mm3 (4.20-5.40); Red Cell Distribution Width 13.1 % (11.5-17.5)
[2024-02-13 11:13] LABS: Alanine Aminotransferase 24 U/L (12-78); Albumin Level 4.2 g/dl (3.5-5.0); Albumin/Globulin Ratio 1.9 (1.1-1.8); Alkaline Phosphatase 85 U/L (38-126); Anion Gap 13.2 mEq/L (5-15); Aspartate Amino Transferase 30 U/L (14-36); Bilirubin,Total 0.5 mg/dl (0.2-1.3); Blood Urea Nitrogen 12 mg/dl (7-17); Calcium 9.7 mg/dl (8.4-10.2); Carbon Dioxide 28 mmol/L (22.0-30.0); Chloride 104 mmol/L (98-107); Estimated Glomerular Filt Rate 71 ml/min (>60); GFR (African American) 86 ML/MIN (>60); Globulin 2.2 g/dL (1.3-3.2); Glucose 90 mg/dl (74-100); Potassium 4.2 mmoL/L (3.5-5.1); Sodium 141 mmol/L (136-145); Total Protein,Serum 6.4 g/dl (6.3-8.2)
== END 2024-02-13 23:59 | disposition home or self-care (01) ==
LOC: LAB 10:17
PROVIDERS: PCP Internal Medicine Adolescent Medicine; Visit Provider Obstetrics & Gynecology
DX: N95.1 Menopausal and female climacteric states (principal)
CPT/HCPCS: 36415; 80053; 85025

== ENCOUNTER 2024-03-03 07:59 | Outpatient (CLI) | payer SELFPAY | END 2024-03-03 23:59 | disposition home or self-care (01) | PROVIDERS: PCP Internal Medicine Adolescent Medicine; Visit Provider Nurse Practitioner Family | DX: Z11.1 Encounter for screening for respiratory tuberculosis (principal) | CPT/HCPCS: 86580 ==

== ENCOUNTER 2024-03-22 07:03 | Outpatient (CLI) | payer MEDICARE, SELFPAY ==
--- NOTE | 2024-03-22 07:35 | MR_ITS ---
FINAL REPORT TECHNIQUE: Multiplanar MR without contrast CLINICAL HISTORY: RIGHT SIDED SCIATICA. right leg pain, numbness and tingling. right hip pain and weakness COMPARISON: None FINDINGS: Sagittal images show normal vertebral height. Mild dextroscoliosis is noted. Marrow signal pattern is unremarkable. T12-L1: Mild annular disc bulge. Mild bilateral neuroforaminal narrowing. No central canal stenosis. L1-2: Minimal annular disc bulge and facet arthropathy. Mild bilateral neuroforaminal narrowing. L2-3: Mild annular disc bulge with facet arthropathy. Borderline central canal stenosis. Mild bilateral neuroforaminal narrowing. L3-4: Moderate annular disc bulge and facet arthropathy. Moderate central canal stenosis. Mild bilateral neuroforaminal narrowing. L4-5: Moderate annular disc bulge. Severe facet arthropathy. Moderate central canal stenosis. Moderate bilateral neuroforaminal narrowing. L5-S1: Minimal annular disc bulge. Advanced facet arthropathy. Mild central canal stenosis. Moderate bilateral neuroforaminal narrowing, left greater than right. IMPRESSION: Multilevel degenerative disc disease as above, most pronounced at L4-5. Reviewed, Interpreted and Dictated by Alyx Calzada MD Transcribed by Joseline Cooper Authenticated and . [facility]
== END 2024-03-22 23:59 | disposition home or self-care (01) ==
LOC: RAD 07:03
PROVIDERS: PCP Internal Medicine Adolescent Medicine; Visit Provider Internal Medicine Adolescent Medicine
DX: M54.31 Sciatica, right side (principal)
CPT/HCPCS: 72148

== ENCOUNTER 2024-07-11 08:05 | Outpatient (CLI) | payer MEDICARE, SELFPAY ==
[2024-07-11 08:35] LABS: Basophils # 0.1 K/mm3 (0-0.2); Basophils % 0.7 % (0.1-2.0); Eosinophils # 0.3 K/mm3 (0.0-0.4); Eosinophils % 3.9 % (0.1-12.0); Hemoglobin 14.4 g/dL (12.2-16.2); Mean Corpuscular HGB Conc 34.3 g/dL (31.8-35.4); Mean Corpuscular Hemoglobin 33.1 pg (27.0-31.2); Mean Corpuscular Volume 96.7 fl (81-99); Mean Platelet Volume 9.4 fl (7.4-10.4); Monocytes # 0.6 K/mm3 (0.1-1.0); Monocytes % 7.4 % (1.7-9.3); Neutrophils # 6.3 K/mm3 (1.8-7.8); Neutrophils % 76.1 % (37.0-80.0); Platelet Count 232 K/mm3 (142-424); Red Blood Count 4.35 M/mm3 (4.20-5.40); Red Cell Distribution Width 13.1 % (11.5-17.5); White Blood Count 8.2 K/mm3 (4.8-10.8)
[2024-07-11 08:51] LABS: Albumin Level 4.2 g/dl (3.5-5.0); Chloride 106 mmol/L (98-107)
[2024-07-11 08:52] LABS: Potassium 3.7 mmoL/L (3.5-5.1); Sodium 140 mmol/L (136-145)
[2024-07-11 08:54] LABS: Alanine Aminotransferase 28 U/L (12-78); Anion Gap 6.7 mEq/L (5-15); Aspartate Amino Transferase 31 U/L (14-36); Blood Urea Nitrogen 22 mg/dl (7-17); Carbon Dioxide 31 mmol/L (22.0-30.0); Estimated Glomerular Filt Rate 83 ml/min (>60); GFR (African American) 100 ML/MIN (>60)
[2024-07-11 08:55] LABS: Alkaline Phosphatase 87 U/L (38-126); Bilirubin,Total 0.7 mg/dl (0.2-1.3); Calcium 9.9 mg/dl (8.4-10.2); Cholesterol 216 mg/dl (140-200); Globulin 2.1 g/dL (1.3-3.2); Glucose 95 mg/dl (74-100); HDL Cholesterol 63 mg/dl (40-60); Total Protein,Serum 6.3 g/dl (6.3-8.2); Triglycerides 159 mg/dl (30-150); VLDL Cholesterol 32 mg/dL (0-40)
[2024-07-11 08:56] LABS: Chol/HDL Ratio 3.4 (1-3.5)
[2024-07-11 09:06] LABS: Direct LDL Cholesterol 102.46 mg/dL (100-129)
[2024-07-11 09:14] LABS: 25-OH Vitamin D, Total 70.3 ng/mL (30-100)
[2024-07-11 09:24] LABS: Uric Acid 5.2 mg/dl (2.5-6.2)
[2024-07-11 09:26] LABS: Thyroid Stimulating Hormone 1.35 uIU/mL (0.465-4.68)
== END 2024-07-11 23:59 | disposition home or self-care (01) ==
LOC: LAB 08:07
PROVIDERS: PCP Internal Medicine Adolescent Medicine; Visit Provider Nurse Practitioner Family
DX: E78.5 Hyperlipidemia, unspecified (principal); E55.9 Vitamin D deficiency, unspecified; M79.672 Pain in left foot; G60.9 Hereditary and idiopathic neuropathy, unspecified; K22.70 Barrett's esophagus without dysplasia; K20.90 Esophagitis, unspecified without bleeding
CPT/HCPCS: 36415; 80053; 80061; 82306; 84443; 84550; 85025

== ENCOUNTER 2024-08-09 06:27 | Day surgery (SDC) | payer MEDICARE, BC, SELFPAY ==
[2024-08-03 13:28] VITALS: BMI 30.9
[2024-08-09] MEDS: LACTATED RINGERS 1000ML 1,000 ML 25 ML IV (07:21)
[2024-08-09 07:25] VITALS: BP 142/76; PULSE 69; RESP 18; TEMP 36.2; O2SAT 97
--- NOTE | 2024-08-09 07:39 | P.PNANES_ITS ---
[facility] Disclaimer: The information contained in this section may have been updated after the patient was seen, as this information can be updated by other users. Medical History Family history of breast cancer maternal aunt and maternal first cousin HTN (hypertension) Barretts esophagus GERD (gastroesophageal reflux disease) Chest pain Osteopenia after menopause Arthritis Family history of heart disease Restless sleeper Dyspnea Surgical History History of esophagogastroduodenoscopy (EGD) History of colonoscopy History of foot surgery S/P small bowel resection History of cholecystectomy History of hysterectomy Family History Other Anemia Asthma Cancer Diabetes Heart attack Hyperlipidemia Hypertension Kidney disease Stroke Social History Smoking Status: Never smoker second hand exposure: No alcohol intake: never substance use type: denies use current occupational status: employed Travel in the last 8 weeks: None housing: house current occupational exposures/hazards: No caffeine: Yes [facility] Anesthesia Checklist Patient Identification Patient Identification: Arm Band and Verbal (Name & ) Structural Data Admitted From: Home Planned Operative Procedure/s: EGD Consent for Planned Operative Procedure(s) Verified: Yes Verified Documents: Surgical Consent and History and Physical NPO Status Verified Time NPO: 18:00 Chart Verification Results Verified: CBC, BMP, ECG and Chest Xray Additional verifications Patient : No Anesthesia Reactions: No Hx Blood Transfusions: No Blood Transfusion Reaction: No Cardiovascular Assessment Heart Sounds: S1 & S2 Pulse Rhythm: Irregular Peripheral Edema: No Airway Assessment Mallampati Score:: Class III C-Spine Mobility Assessed: Yes (FROM) TMJ Mobility Assessed: Yes Dentition: Good Dentition (Nothing loose per pt.) Neurological Assessment Level of Consciousness: Awake, Alert, Appropriate and Follows Commands Hx Seizures: No Numbness or tingling in extremities: No Anesthesia Plan Anesthesia Risk discussed: Yes Anesthesia Plan: Verified ASA Class: III Anesthesia Type: MAC
--- NOTE | 2024-08-09 08:32 | EXP.HP ---
History of Present Illness *Admission Date: 08/09/24 *Reason for visit:: Surveillance [place]'s *History of present illness: Mrs. Houston is a 69-year-old female who is here for surveillance upper endoscopy secondary to a history of [place]'s esophagus. The examination is deemed medically necessary for upper endoscopy. The patient has been seen, interviewed and examined prior to the procedure by both myself and the anesthesia provider. [facility] Disclaimer: The information contained in this section may have been updated after the patient was seen, as this information can be updated by other users. Medical History Family history of breast cancer maternal aunt and maternal first cousin HTN (hypertension) Barretts esophagus GERD (gastroesophageal reflux disease) Chest pain Osteopenia after menopause Arthritis Family history of heart disease Restless sleeper Dyspnea Surgical History History of esophagogastroduodenoscopy (EGD) History of colonoscopy History of foot surgery S/P small bowel resection History of cholecystectomy History of hysterectomy Family History Other Anemia Asthma Cancer Diabetes Heart attack Hyperlipidemia Hypertension Kidney disease Stroke Social History Smoking Status: Never smoker second hand exposure: No alcohol intake: never substance use type: denies use current occupational status: employed Travel in the last 8 weeks: None housing: house current occupational exposures/hazards: No caffeine: Yes Other Medical History Have you received the Flu Vaccine for this season: No Have you received the Pneumonia Vaccine: Yes Review of Systems Review of Systems Review of systems (narrative): Negative *Cardiovascular Comments: Negative *Gastrointestinal Comments: Negative *Genitourinary Comments: Negative *Musculoskeletal Comments: Negative *Neurologic Comments: Negative Meds Home Medications and Allergies Home Medications ?Medication ?Instructions ?Recorded ?Confirmed ?Type aspirin 81 mg tablet,delayed 81 mg PO DAILY Heart health 05/12/18 08/09/24 History release (Adult Low Dose Aspirin) celecoxib 200 mg capsule (Celebrex) 200 mg PO BID Arthritis 05/12/18 08/03/24 History potassium chloride 20 mEq 20 meq PO DAILY Supplement 05/30/20 08/03/24 History tablet,extended release(part/cryst) gabapentin 300 mg capsule 900 mg PO HS Pain 04/14/21 08/03/24 History omeprazole 40 mg capsule,delayed 40 mg PO BID Acid reflux 04/14/21 08/03/24 History release magnesium oxide 250 mg PO DAILY Supplement 05/14/21 08/03/24 History atorvastatin 40 mg tablet 40 mg PO DAILY Cholesterol #90 tabs 05/03/22 08/03/24 Rx prednisone 5 mg tablet 5 mg PO DAILY 04/22/23 08/03/24 History tizanidine 2 mg tablet 4 mg PO Q8H PRN Muscle spasms 04/22/23 08/03/24 History nitroglycerin 0.4 mg sublingual 0.4 mg sublingual Q5MINP PRN chest 10/31/23 08/03/24 Rx tablet pain #25 tabs furosemide 40 mg tablet 40 mg PO DAILY 02/13/24 08/03/24 History hydrocodone 5 mg-acetaminophen 325 1 tab PO DAILY PRN Pain 02/13/24 08/03/24 History mg tablet vortioxetine 10 mg tablet 10 mg PO DAILY 02/13/24 08/03/24 History (Trintellix) bisoprolol fumarate 5 mg tablet See Rx Instructions .Route 07/25/24 08/03/24 Rx .COMPLEX #180 tabs spironolactone 25 mg tablet See Rx Instructions .Route 07/31/24 08/03/24 Rx .COMPLEX #90 tabs New Prescriptions to Start Prescriptions: Allergies Allergy/AdvReac Type Severity Reaction Status Date / Time amlodipine (From Norvasc) Allergy Unknown I-HIVES Verified 08/09/24 07:23 oxycodone (From PERCOCET) Allergy Unknown NA-HALLUCIN Verified 08/09/24 07:23 ATIONS Exam Data for Last 24 hours Vital signs and Labs for Last 24 Hours: Temp Pulse Resp BP Pulse Ox O2 Del Method 97.2 F L 69 18 142/76 H 97 Room Air 08/09/24 07:25 08/09/24 07:25 08/09/24 07:25 08/09/24 07:25 08/09/24 07:25 08/09/24 07:25 *Routine HEENT Exam Head: Present normocephalic Eye: Present EOMI and PERRL ENT: Present mucous membranes moist *Routine Neck Exam Neck: Present supple *Routine Respiratory Exam Respiratory: Present CTA bilaterally *Routine Cardiovascular Exam Cardiovascular: Present RRR *Routine Abdominal Exam Abdominal: Present soft and normoactive bowel sounds; Absent tenderness *Routine Rectal Exam Rectal:: deferred *Routine Genitalia Exam Genitalia:: deferred *Routine Extremities Exam Extremities: Absent cyanosis, clubbing or edema *Routine Skin Exam Skin: Present warm; Absent rash *Routine Neurological Exam Neurological: Present alert and oriented X3 Assessment and Plan *Assessment and plan (1) Short-segment [place]'s esophagus: Status: Acute Category: Medical Code(s): K22.70 - [place]'s esophagus without dysplasia Plan A/P: 1. GERD with history of [place]'s esophagus is the preprocedural diagnosis. The patient will be anesthetized/sedated using MAC sedation. The patient has been seen and examined. Cardiac and lung assessment prior to the examination is stable. Proceed with planned EGD
[2024-08-09 08:34] VITALS: O2SAT 100
--- NOTE | 2024-08-09 08:43 | P.PCN_ITS ---
[facility] Procedure Note Date: 08/09/24 Time: 08:55 Procedure Note:: Upper Endoscopy Procedure Report: Esophagogastroduodenoscopy with cold biopsies Endoscopost: Jose Manuel II, MD Referring Physician: Scar Lyons M.D. Date of Procedure: August 09, 2024 Equipment: Olympus GIF 190 standard upper endoscope Sedation: MAC sedation Indications: Mrs. Houston is a 69-year-old female with longstanding GERD. She has had 2 upper endoscopies 1 with me in 2018 with GE junction biopsies showing intestinal metaplasia. Her most recent endoscopy (Josiah Angela) in November 2022 also showed biopsies at the GE junction showing intestinal metaplasia. The patient does have chronic longstanding GERD and is on Prilosec twice daily. She has been to the emergency department twice in the last year with chest pain that was deemed to be esophageal spasm and reflux. She has had a negative cardiac evaluation. The patient does have bloating, gassiness, belching and nausea. She does take Zofran regularly. She reports early satiety. She does get some postprandial bowel urgency. The patient has had increased stress since the passing of her . She reports no dysphagia. Procedure: Prior to the procedure, a history and physical exam was performed, and patient's medications and allergies were reviewed. The risks, benefits and alternatives of the sedation and procedure were discussed with the patient. All questions were answered and informed consent was obtained. The patient was brought to the procedure room. Patient identification and proposed procedure were verified by the physician and the nurse. The patient was placed in a left lateral decubitus position and the scope was passed under direct vision. Throughout the procedure, the patient's blood pressure, pulse, and oxygen saturations were monitored continuously. The upper GI endoscopy was accomplished without d ifficulty. The patient tolerated the procedure well. Findings: The scope was passed directly into the upper esophagus and advanced to the third portion of the duodenum. The post bulbar duodenum and duodenal bulb were normal with normal mucosa and conniventes. The scope was withdrawn through a normal duodenal bulb and pylorus into the stomach. There was moderate linear reactive gastropathy of the antrum and body with bile reflux. Biopsies were taken from the antrum. There was a fundic gland polyp in the body/greater curvature that was removed via cold biopsy. Upon retroflexion there was a 3 cm medium sized hiatal hernia. The scope was then withdrawn into the esophagus. There was a single tongue of salmon-colored mucosa that was biopsied to rule out very short segment [place]'s esophagus. There was no evidence of reflux esophagitis. There was some bile reflux within the esophagus. The remainder of the esophageal mucosa was normal. Impression: 1. Very short segment [place]'s esophagus (single tongue of salmon-colored mucosa) 2. Biliary reflux with medium sized 3 cm hiatal hernia 3. Linear reactive gastropathy with bile reflux 4. Gastric fundic gland polyp Plan: I will follow-up the biopsies. The patient does have very short segment [place]'s esophagus. With long segment Colorado's esophagus, surveillance is 2 to 3 years. With very short segment [place]'s esophagus surveillance will be 5 years as long as no dysplasia is identified on histology. More importantly, the patient does have intractable gas driven biliary/bile/duodenal reflux which we will address with treatment options. This is causing some intermittent esophageal spasm. She has been to the ED twice for the esophageal spasm. She does get moderate belching and bloating.
[2024-08-09 08:54] VITALS: BP 114/65; PULSE 69; RESP 16; TEMP 36.2; O2SAT 95
[2024-08-09 09:04] VITALS: BP 120/68; PULSE 69; RESP 16; O2SAT 96
[2024-08-09 09:14] VITALS: BP 139/77; PULSE 62; RESP 16; O2SAT 96
[2024-08-09 09:23] VITALS: BP 136/76; PULSE 64; RESP 16; O2SAT 97
== END 2024-08-09 09:24 | disposition home or self-care (01) ==
PROVIDERS: PCP Internal Medicine Adolescent Medicine; Visit Provider Internal Medicine Gastroenterology
PROC: 0DJ08ZZ Inspection of Upper Intestinal Tract, Via Natural or Artificial Opening Endoscopic (ICD-10-PCS; CPT 43235; principal; 2024-08-09 08:30)
DX: K22.70 Barrett's esophagus without dysplasia (principal); K21.9 Gastro-esophageal reflux disease without esophagitis; K44.9 Diaphragmatic hernia without obstruction or gangrene; K31.9 Disease of stomach and duodenum, unspecified; K31.7 Polyp of stomach and duodenum
CPT/HCPCS: 43239; 88305; J7120

== ENCOUNTER 2024-10-26 09:30 | Outpatient (CLI) | payer BC, MEDICARE, SELFPAY ==
--- NOTE | 2024-10-26 09:37 | MM_ITS ---
PROCEDURE INFORMATION: Exam: MG Bilateral Screening 3D Mammography Exam date and time: 10/26/2024 9:41 AM Age: 69 years old Clinical indication: Screening examination TECHNIQUE: Imaging protocol: Bilateral Screening tomosynthesis and 2D mammography including computer-aided detection (CAD) when performed. COMPARISON: 1. MG MM DIG SCREENING MAMM BI W/CAD 10/12/2023 4:42 PM 2. MG MM DIG SCREENING MAMM BI W/CAD 08/27/2022 8:14 AM FINDINGS: MAMMOGRAPHY: Breast composition: There are scattered areas of fibroglandular density. Mass: No suspicious masses. Architectural distortion: None. Calcifications: No suspicious calcifications. Asymmetric density: None. Skin thickening: None. Axillary adenopathy: None. IMPRESSION: No mammographic evidence of malignancy. Annual screening is recommended unless otherwise clinically indicated. ASSESSMENT: BI-RADS Category 1: Negative.
== END 2024-10-26 23:59 | disposition home or self-care (01) ==
LOC: RAD 09:32
PROVIDERS: PCP Internal Medicine Adolescent Medicine; Visit Provider Internal Medicine Adolescent Medicine
DX: Z12.31 Encounter for screening mammogram for malignant neoplasm of breast (principal)
CPT/HCPCS: 77063; 77067

== ENCOUNTER 2024-12-24 09:53 | Outpatient (CLI) | payer BC, MEDICARE, SELFPAY ==
--- NOTE | 2024-12-24 10:03 | XR_ITS ---
FINAL REPORT CLINICAL HISTORY: left hip pain mainly in the groin FINDINGS: LEFT HIP: Two views of the left hip demonstrate no acute fracture or dislocation. The joint spaces appear normal. The visualized bony structures are well aligned. No soft tissue abnormality is seen. IMPRESSION: No acute bony abnormality. Reviewed, Interpreted and Dictated by Alyx Calzada MD Transcribed by Keila Velez Authenticated and [facility]
--- NOTE | 2024-12-24 10:04 | XR_ITS ---
FINAL REPORT CLINICAL HISTORY: LT HIP PAIN, mainly in groin FINDINGS: LEFT FEMUR Two views show no evidence of an acute, displaced fracture or dislocation of the visualized bony architecture. The joint spaces appear normal. IMPRESSION: Unremarkable exam. Reviewed, Interpreted and Dictated by Alyx Calzada MD Transcribed by Keila Velez Authenticated and [facility]
== END 2024-12-24 23:59 | disposition home or self-care (01) ==
LOC: RAD 09:59
PROVIDERS: PCP Internal Medicine Adolescent Medicine; Visit Provider Internal Medicine Adolescent Medicine
DX: M25.552 Pain in left hip (principal)
CPT/HCPCS: 73502; 73552

== ENCOUNTER 2025-01-23 11:00 | Outpatient (RCR) | payer BC, MEDICARE, SELFPAY ==
--- NOTE | 2025-01-07 12:51 | HMH.PTOPEV ---
PT Outpatient Evaluation Rehab PT Outpatient Evaluation Start: 01/07/25 09:33 Freq: Status: Active Protocol: Document 01/07/25 09:38 NELDA (Rec: 01/07/25 12:51 NELDA [id number]) E-signed By Nic Kim, PT Outpatient Therapy Subjective History Subjective History Pt is a 69 yof who presents to [facility] outpatient PT with complaints of L groin pain and slightly into L abdomen. Reports that this pain began approximately 2 months ago. Pt reports that the pain is grabbing and stabbing. She reports that she cannot recall an event that would have caused this pain to begin. She reports that she had x-rays which were remarkable. 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 She reports that her pain has gradually worsened over the past two months. Pt reports she cannot walk more than very short distances. 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 Chief Complaint Pain Symptom Type Sharp,Stabbing Symptoms Relieved By Heat,Prescription Meds Symptoms Aggravated By Sitting,Standing,Bending/ Stooping,Physical Activity, Walking Prior Functional Limitations None Current Functional Limitations Lifting Symptom Description Constant but Variable Level of pain today (0-10) 3 Pain scale - at its best (0-10) 3 Pain scale - at its worst (0-10) 10 Hip/Knee Eval Gait Observation General Gait Pattern Observation Antalgic Gait,Decrease Weight Bear (L),Decrease Stride Lngth (R) Palpation Tenderness left Knee Palpation Overall Comment 3/4 TTP to lesser trochanter and psoas muscle belly Hip Palpation Findings Tenderness MMT Hip Flexion Strength Grade 2 Poor Hip Abduction Strength Grade 3 Fair Hip Adduction Strength Grade 2+ Poor+ Hip Extension Strength Grade 3 Fair Knee Extension Strength Grade 4- Good- Knee Flexion Strength Grade 3+ Fair+ Special Tests Hip Bowstring (Cram) Test Negative Left Hip Ana's Test Negative Left Hip Danika Test Negative Left Hip Piriformis Test Negative Left Hip 90-90 Straight Leg Raise Test Negative Left Sciatic Nerve Tension Test Negative Left Hip Sitting Root Test Negative Left Hip Scouring (Quadrant) Test Negative Left Luis Manuel Test Positive Hip Trendelenburg Test Negative Left Lower Extremity Functional Index Activities Today, do you or would you have any difficulty at all with: a.Any of your usual work, housework or Moderate difficulty school activities b. Your usual hobbies, recreational or Quite a bit of difficulty sporting activities c. Getting into or out of the bath Moderate difficulty d. Walking between rooms A little bit of difficulty e. Putting on your shoes or socks A little bit of difficulty f. Squatting Quite a bit of difficulty g. Lifting an object, like a bag of Extreme difficulty or unable groceries from the floor to perform activity h. Performing light activities around Moderate difficulty your home i. Performing heavy activities around Extreme difficulty or unable your home to perform activity j. Getting into or out of a car Quite a bit of difficulty k. Walking 2 blocks Quite a bit of difficulty l. Walking a mile Extreme difficulty or unable to perform activity m. Going up or down 10 stairs (about 1 Quite a bit of difficulty flight of stairs) n. Standing for 1 hour Moderate difficulty o. Sitting for 1 hour Moderate difficulty p. Running on even ground Quite a bit of difficulty q. Running on uneven ground Quite a bit of difficulty r. Making sharp turns while running fast Moderate difficulty s. Hopping Extreme difficulty or unable to perform activity t. Rolling over in bed Moderate difficulty LEFI Score Lower Extremity Functional Index Score 27 Miscellaneous Dx PT Eval Objective Objective SLS on L: Unable to initiate Tandem Stance: <10s B Outpatient Therapy Assessment Impairments Problems/Impairmments Palpation Tenderness,Impaired Strength,Impaired Gait Pattern ,Impaired Walking,Impaired Standing,Impaired Sitting, Impaired Lifting,Impaired Household Care,Impaired Squatting,Impaired Work Activities,Impaired Balance, Subjective C/O Pain Prognosis Rehab Potential Good Comment w HEP compliance Clinical Impression Consistent with Diagnosis Yes Consistent with L Hip Flexor Strain Additional details: Pt presents with signs and symptoms consistent with a strain of her left hip flexors . Pt demonstrates pain with active and resisted hip flexion and pain with passive hip extension. Skilled PT is indicated for this pt to promote a return to her PLOF and to address her current impairments. Short Term Goals Number of Weeks 4 Decreased Palpation Tenderness Yes: 1-2/4 to TTP Assessment Above Increase Strength Yes: 3+/5 to LLE Grossly Improve Balance Yes: Tandem Stance for 30s on even surface Improve LEFI Score Yes: to 37 Decrease Subjective C/O Pain Yes: 5/10 with above assessment Patient to be Ind w/ HEP Yes Mcfp Goals Number of Weeks 8 Decreased Palpation Tenderness Yes: 0-1/4 to TTP assessment above Increase Strength Yes: 4-4+/5 to LLE grossly Improve Gait Pattern without Assistive Yes: Normalized gait pattern. Device Increased stance time on LLE. Increase Ability to Walk Yes: 1/2 mile without increasing symptoms Restore Ability to Lift Objects to Waist Yes: 15# without increasing Level symptoms and proper lifting mechanics Improve Ability For Household Care Yes: Cook/clean house without increasing symptoms Improve Balance Yes: Tandem Stance on UE Surface for 30s Improve LEFI Score Yes: to 47 Decrease Subjective C/O Pain Yes: 2-310 with above assessment Patient to be Ind w/ Advanced HEP Yes Outpatient Therapy Plan of Care Treatment Plan May Include Therapeutic Exercise Including Home Yes Exercise Program Manual Therapy Techniques Yes Neuromuscular Re-education Yes Therapeutic Activities to Return to Yes Previous Functional/Work Level Gait Training Yes ADL/Self Care Education Yes Thermal Modalities Yes Electrical Stimulation Yes Manual Lymphatic Drainage Yes Eval/Re-Eval Yes Frequency Times per week 1-2 Duration Number of Weeks 8 Addendums This patient is a candidate for social No or vocational rehab? Patient/Guardian verbally acknowledges Yes understanding of treatment program and consents to further treatment? Patient/Guardian verbally acknowledges Yes understanding of diagnosis, prognosis and goals for treatment? Eval Complexity PT Charges 70043 - Moderate Complexity Shoulder/Elbow Eval Shoulder Objective Measurements Elbow Objective Measurements PHYSICIAN CERTIFICATION: I certify the specified therapy services for Giulia Houston are required, authorized, and reviewed every 30 days.
== END 2025-01-23 23:59 | disposition home or self-care (01) ==
LOC: PT 11:00
PROVIDERS: PCP Internal Medicine Adolescent Medicine; Visit Provider Internal Medicine Adolescent Medicine
DX: M25.552 Pain in left hip (principal)
CPT/HCPCS: 97110; 97163; 97530

== ENCOUNTER 2025-02-06 11:00 | Outpatient (RCR) | payer BC, MEDICARE, SELFPAY ==
--- NOTE | 2025-02-06 13:12 | HMH.RHREAS ---
Rehab Reassessment Rehab OP Re-assessment Start: 01/29/25 09:33 Freq: Status: Active Protocol: Document 02/06/25 12:41 JIMENEZDOMINIC (Rec: 02/06/25 13:12 NELDA [id number]) E-signed By Nic Kim PT Lower Extremity Functional Index Activities Today, do you or would you have any difficulty at all with: a.Any of your usual work, housework or A little bit of difficulty school activities b. Your usual hobbies, recreational or Quite a bit of difficulty sporting activities c. Getting into or out of the bath A little bit of difficulty d. Walking between rooms A little bit of difficulty e. Putting on your shoes or socks A little bit of difficulty f. Squatting Moderate difficulty g. Lifting an object, like a bag of Quite a bit of difficulty groceries from the floor h. Performing light activities around A little bit of difficulty your home i. Performing heavy activities around Quite a bit of difficulty your home j. Getting into or out of a car Moderate difficulty k. Walking 2 blocks Moderate difficulty l. Walking a mile Extreme difficulty or unable to perform activity m. Going up or down 10 stairs (about 1 Moderate difficulty flight of stairs) n. Standing for 1 hour Moderate difficulty o. Sitting for 1 hour A little bit of difficulty p. Running on even ground Extreme difficulty or unable to perform activity q. Running on uneven ground Extreme difficulty or unable to perform activity r. Making sharp turns while running fast Extreme difficulty or unable to perform activity s. Hopping Extreme difficulty or unable to perform activity t. Rolling over in bed A little bit of difficulty LEFI Score Lower Extremity Functional Index Score 34 Rehab Re-assessment Subjective Subjective Pt reports that she had progressively been improving for the past 2-3 weeks since beginning PT. However, reports that she was very active this weekend and presents this date with her symptoms worsened. Pt reports that in the past two weeks, her pain had not exceeded 2/10, but today presents at a 7/10 pain. Reports that the pain consistently stays in the front of her L hip in the groin area and sometimes into the lateral thigh. She reports that she does think PT was helping but reports that she is unsure why she is hurting so much more the last couple of days. Reports that she would like to continue with PT . Objective Objective Notes LEFS: 34 (27 on IE) TTP: 3/4 to ASIS and Hip flexor tendon MMT: - L hip ABD 4/5 - L hip flexion 3+/5 (P!) - L hip add 4/5 - L hip Ext: 4/5 TS on even surface: 30s ea TS on uneven surface: failed Gait: Normal gait pattern with symmetrical stance time and step length. Assessment Progress Assessment Slower Than Expected Assessment Notes The pt has undergone a month of formal PT thus far consisting of LE strength, balance and pain management. The pt was demonstrating consistent progress in strength, pain and function for the first three weeks. However, she has recently been suffering similar pain and symptoms to the initial evaluation. The pt has demonstrated modest improvements in strength and balance at this time. The pt would continue to benefit from skilled PT to continue to address her remaining impairments. Patient goals met ST,3,6 LT Plan Plan Continue as per initial POC. Frequency of Therapy 2/week Duration of therapy 4 weeks Time and Billing Re-Eval Time 10 Re-Eval Billing Units 1 Charge for PT reassessment? Yes PHYSICIAN CERTIFICATION: I certify the specified therapy services for Giulia Houston are required, authorized, and reviewed every 30 days.
== END 2025-02-06 23:59 | disposition home or self-care (01) ==
LOC: PT 11:00
PROVIDERS: PCP Internal Medicine Adolescent Medicine; Visit Provider Internal Medicine Adolescent Medicine
DX: M25.552 Pain in left hip (principal)
CPT/HCPCS: 97033; 97110; 97140; 97164

== ENCOUNTER 2025-07-12 12:47 | Outpatient (CLI) | payer BC, MEDICARE, SELFPAY ==
--- OUTSIDE RECORDS SUMMARY | 2025-07-15 13:02 | XMS_ITS | Encounter Summary ---
Author Organization [facility] [place] [address] Care Team Providers Care Principal Administrative Clerk Name Role Phone Scar Lyons MD Primary Care Provider [phone] Luis Manuel Ford MD Unavailable Yvonne Spangler APRN Unavailable Encounter Details Date Type Department Care Team (Late st Contact Info) Description 03/23/2016 Orders Only [facility] [address] [facility] [address] [place] [address] Luis Manuel Ford MD [address] [place], [place] [id number] Social History Tobacco Use Types Packs/Day Years Used Date Smoking Tobacco: Never Smokeless Tobacco: Never Alcohol Use Standard Drinks/Week Comments No 0 (1 standard drink = 0.6 oz pur e alcohol) Comments No Sex and Gender Information Value Date Recorded Sex Assigned at Not on file Legal Sex Female 4:01 PM EDT Gender Identity Not on file Sexual Orientation Not on file documented as of this encounter Functional Status * Cognitive and Functional Status Question Answer Date of Assessment Author Is the person deaf or does he/she have serious difficulty hearing? No 03/24/2016 12:15 PM EDT Marlena Arzate RN Is the person blind or does he/she have serious difficulty seeing even when wearing glasses? No 03/24/2016 12:15 PM EDT Marlena Arzate RN Does this person have seriou s difficulty walking or climbing stairs? No 03/24/2016 12:15 PM EDT Marlena Arzate RN Does this person have difficulty dressing or bathing? No 03/24/2016 12:15 PM EDT Marlena Nicholson RN documented as of this encounter Mental Status * Cognitive and Functional Status Question Answer Entry Date Author Because of a physical, menta l or emotional condition, does this person have difficulty doing errands alone such as visiting a doctor's office or shopping? No 03/24/2016 12:15 PM EDT Marlena Arzate RN Because of a physical, menta l or emotional condition, does this person have serious difficulty concentrating, remembering or making decisions? No 03/24/2016 12:15 PM EDT Marlena Arzate RN documented in this encounter Plan of Treatment Not on file documented as of this encounter Procedures Procedure Name Priority Date/Time Associated Diagnosis Comments EP LAB RECORDINGS Routine 03/23/2016 9:21 AM EDT documented in this encounter Results * EP LAB RECORDINGS (03/23/2016 9:21 AM EDT) 03/23/2016 9:21 AM EDT Luis Manuel Ford MD CARDIAC CATH ORDERABLES Final Result Performing Organization Address [facility]/State/[facility] Co de Phone Number [facility] [address] [place] [address] documented in this encounter Visit Diagnoses Not on filedocumented in this encounter Care Teams Principal Administrative Clerk Relationship Specialty Start Date End Date Scar Lyons MD [facility] [place] [address] PCP - General Internal Medicine-Adolescent Medicine 02/27/16 Luis Manuel Ford MD [address] [place] [address] Consulting Physician Internal Medicine - Clinical Cardiac Electrophysiology 04/26/17 Yvonne Spangler APRN [address] [place] [address] [place] [address] Nurse Practitioner 01/19/18 documented as of this encounter
--- OUTSIDE RECORDS SUMMARY | 2025-07-15 13:02 | XMS_ITS | Clinical Summary ---
Author Organization [facility] Address [address] [facility] [address] [place] [address] Phone Care Team Providers Care Bell Spinner Sousaphones Name Role Phone Scar Lyons MD Primary Care Provider [phone] Luis Manuel Ford MD Unavailable [phone] Yvonne Spangler APRN Unavailable [phone] Allergies Active Allergy Reactions Criticality Noted Date Comments Amlodipine Rash Medium 02/20/2016 Oxycodone-Acetaminophen Other (See Comments) hallucinations Medications lubiprostone (AMITIZA) 24 mcg Oral Capsule Take 24 mcg by mouth 2 times daily (with meals). Active celecoxib (CELEBREX) 200 mg Oral Capsule Take 200 mg by mouth daily. Active estradiol (ESTRACE) 1 mg Oral Tablet Take 1 mg by mouth daily. Active omeprazole (PRILOSEC) 40 mg Oral Capsule, Delayed Release(E.C.) Take 40 mg by mouth daily. Active Cholecalciferol, Vitamin D3, 5,000 unit Oral Tablet Take 1 Tab by mouth daily. Active predniSONE (DELTASONE) 5 mg Oral Tablet Take 5 mg by mouth daily. Active aspirin 81 mg Oral Tablet, Delayed Release (E.C.)Indication s:Syncope, unspecified syncope type,Encounter for loop recorder check Take 81 mg by mouth daily. Active POTASSIUM CHLORIDE ORALIndications: Ventricular tachycardia (HCC),Premature atrial contraction,Supr aventricular tachycardia,Sync ope, unspecified syncope type,SOBOE (shortness of breath on exertion) Take 20 mEq by mouth daily. Active fUROsemide (LASIX) 40 mg Oral TabletIndication s:Ventricular tachycardia (HCC),Premature atrial contraction,Supr aventricular tachycardia,Sync ope, unspecified syncope type,SOBOE (shortness of breath on exertion) Take 40 mg by mouth daily. Active CALCIUM CARBONATE (CALCIUM 500 ORAL)Indications :Ventricular tachycardia (HCC),Premature atrial contraction,Supr aventricular tachycardia,Sync ope, unspecified syncope type,SOBOE (shortness of breath on exertion) Take 2 Caps by mouth daily. Active ranitidine (ZANTAC) 300 mg Oral TabletIndication s:Ventricular tachycardia (HCC),Premature atrial contraction,Supr aventricular tachycardia,Sync ope, unspecified syncope type,SOBOE (shortness of breath on exertion) Take 300 mg by mouth nightly. Active losartan (COZAAR) 100 mg Oral TabletIndication s:Ventricular tachycardia (HCC),Premature atrial contraction,Supr aventricular tachycardia,Sync ope, unspecified syncope type,SOBOE (shortness of breath on exertion) Take 0.5 Tabs by mouth daily. 05/13/2017 Active gabapentin (NEURONTIN) 300 mg Oral Capsule Take 300 mg by mouth 3 times daily. Active vortioxetine (TRINTELLIX) 10 mg Oral tablet Take 10 mg by mouth daily. Active HYDROcodone-acet aminophen (NORCO) 5-325 mg Oral Tablet Take 1 Tab by mouth every 6 hours as needed. Active dilTIAZem (CARTIA XT) 240 mg Oral Capsule, Sust. Release 24 hr TAKE 1 CAPSULE BY MOUTH EVERY DAY 30 Cap 11 07/21/2018 Active flecainide (TAMBOCOR) 100 mg Oral Tablet Take 1 Tab by mouth every 12 hours. 60 Tab 11 07/21/2018 Active Active Problems Problem Noted Date Diagnosed Date Hypertensive heart disease 02/20/2016 Angina pectoris 02/20/2016 Ventricular tachycardia 02/20/2016 Premature atrial contraction 02/20/2016 Ventricular premature beats 02/20/2016 Supraventricular tachycardia 02/20/2016 Syncope 02/20/2016 Overview (03/24/2016): S/p MDT Vita DAVIDR mariano-Dr. Ford 03/23/16 Surgical History Surgery Date Site/Laterality Comments CHOLECYSTECTOMY HYSTERECTOMY SMALL INTESTINE SURGERY FOOT SURGERY right foot OTHER SURGICAL HISTORY 03/23/16 Comprehensive EP study, Electroanatomic Mapping (no ablation)-Dr. Ford OTHER SURGICAL HISTORY 03/23/16 MDT Linbrittanie ILR implant-Dr. Ford Medical History Medical History Date Comments Hypertensive heart disease Angina pectoris Ventricular tachycardia (HCC) Premature atrial contraction Ventricular premature beats Supraventricular tachycardia Syncope PVC's (premature ventricular contractions) Social History Tobacco Use Types Packs/Day Years Used Date Smoking Tobacco: Never Smokeless Tobacco: Never Tobacco Cessation:Counseling Given: No Alcohol Use Standard Drinks/Week Comments No 0 (1 standard drink = 0.6 oz pur e alcohol) Comments No Sex and Gender Information Value Date Recorded Sex Assigned at Not on file Legal Sex Female 4:01 PM EDT Gender Identity Not on file Sexual Orientation Not on file Last Filed Vital Signs Vital Sign Reading Time Taken Comments Blood Pressure 124/78 07/21/2018 1:50 PM EDT Pulse 77 07/21/2018 1:50 PM EDT Temperature 36.5 C (97.7 F) 03/24/2016 8:24 AM EDT Respiratory Rate 18 03/24/2016 8:24 AM EDT Oxygen Saturation 95% 07/21/2018 1:50 PM EDT Inhaled Oxygen Concentration - - Weight 98.7 kg (217 lb 9.6 oz) 07/21/2018 1:50 P M EDT Height 175.3 cm (5' 9 ) 07/21/2018 1:50 PM EDT Body Mass Index 32.13 07/21/2018 1:50 PM EDT Plan of Treatment Health Maintenance Due Date Last Done Comments Hepatitis C Screening 1973 DTaP/TDaP/Td (1 - Tdap) 1974 Cologuard 2000 FIT 2000 Sigmoidoscopy 2000 Virtual Colonography 2000 Pneumococcal Vaccine 50+ (1 of 1 - PCV) 2005 Zoster (1 of 2) 2005 Annual Wellness Exam 02/26/2017 02/27/2016 (Postponed) Breast Cancer Screening 02/26/2018 02/27/20 16 (Postponed) Bone Density Screening 2020 COVID-19 Vaccine (2024-2 6 season) 2025 Influenza Vaccine (#1) 2025 Colon Cancer Screening 02/26/2026 Colonoscopy 02/26/2026 02/27/2016 (Postponed) Hepatitis B Vaccine Aged Out No longe r eligible based on patient's age to complete this topic Meningococcal B Vaccine Aged Out No l onger eligible based on patient's age to complete this topic Medical Devices Implanted Type Area Portal Administrator Device Identifier Shelf Expiration Date Model / Serial / Lot Reveal Linq Product System Device And Monitor - [id number] Implanted:Qty: 1 on 03/23/2016 by Luis Manuel Ford MD at [facility] [employer] / [id number] / Insurance Advance Directives For more information, please contact: [phone] * Full Code (Latest Code Status on File) Date Activated Date Inactivated Comments 03/24/2016 10:10 AM 03/24/2016 4:50 PM Care Teams Bell Spinner Sousaphones Relationship Specialty Start Date End Date Scar Lyons MD [address] [place] [address] [place] [address] PCP - General Internal Medicine-Adolescent Medicine 02/27/16 Luis Manuel Ford MD [address] [place] [address] Consulting Physician Internal Medicine - Clinical Cardiac Electrophysiology 04/26/17 Yvonne Spangler APRN [address] [place] [address] [place] [address] Nurse Practitioner 01/19/18
--- OUTSIDE RECORDS SUMMARY | 2025-07-15 13:02 | XMS_ITS | Clinical Summary ---
Author Organization [facility] Address [address] [place] [address] Care Team Providers Care Export Coordinator Name Role Phone Scar Lyons MD Primary Care Provider [phone] Allergies Active Allergy Reactions Criticality Noted Date Comments Amlodipine Rash Medium 02/20/2016 Oxycodone-Acetaminophen Other (See Comments) hallucinations Medications atorvastatin (LIPITOR) 40 MG tablet 06/26/2021 Active potassium chloride (KCl) 2 mEq/mL solution oral liquid Take 20 mEq by mouth Daily. Active Magnesium 250 MG tablet Daily. Active calcium carbonate (OS-EMELY) 1250 (500 Ca) MG tablet Take 2 capsules by mouth Daily. Active aspirin (aspirin) 81 MG EC tablet Take 81 mg by mouth Daily. Active bisoprolol (ZEBeta) 5 MG tablet 08/25/2021 Active celecoxib (CeleBREX) 200 MG capsule take 1 capsule by oral route 2 times every day Active Cholecalciferol 125 MCG (5000 UT) tablet Daily. Active estradiol (ESTRACE) 0.5 MG tablet Take 1 tablet by mouth. Active furosemide (LASIX) 40 MG tablet 08/25/2021 Active gabapentin (NEURONTIN) 600 MG tablet Take 1 tablet by mouth Daily. Active HYDROcodone-lacey taminophen (NORCO) 5-325 MG per tablet Take 1 tablet by mouth Every 6 (Six) Hours As Needed. Active omeprazole (priLOSEC) 40 MG capsule take 1 capsule by oral route bid Active predniSONE (DELTASONE) 1 MG tablet 09/14/2021 Active raloxifene (EVISTA) 60 MG tablet 06/26/2021 Active Vortioxetine HBr 10 MG tablet Take 10 mg by mouth Daily. Active gabapentin (NEURONTIN) 300 MG capsule 10/03/2021 Active Active Problems No known active problems Family History Medical History Relation Name Comments Diabetes Brother Cancer Father Diabetes Father Heart disease Father Arthritis Mother Diabetes Mother Hypertension Mother Diabetes Sister Relation Name Status Comments Brother Alive Father Mother Alive Sister Alive Social History Tobacco Use Types Packs/Day Years Used Date Smoking Tobacco: Never Smokeless Tobacco: Never Alcohol Use Standard Drinks/Week Comments Never 0 (1 standard drink = 0.6 oz pur e alcohol) Abuse Screen Answer Date Recorded Unsafe at Home or Work/School Not on file Feels Threatened by Someone? Not on file Does Anyone Keep You from Co ntacting Others or Doint Things Outside the Home? Not on file 07/08/2023 Physical Sign of Abuse Present Not on file 1 Housing Stability Answer Date Recorded Current Living Arrangements Not on file 06/26 Potentially Unsafe Housing Conditions Not on zan e 07/08/2023 Family and Community Support Answer Dirk e Recorded Help with Day-to-Day Activities Not on file 07/08/2023 Lonely or Isolated Not on file 07/08/2023 Employment Answer Date Recorded Do you want help finding or keeping work or a steve b? Not on file 07/08/2023 Disabilities Answer Date Recorded Concentrating, Remembering, or Making Decisions Difficulty Not on file 07/08/2023 Doing Errands Independently Difficulty Not on fi le 07/08/2023 Education Answer Date Recorded Help with school or training? Not on file Preferred Language Not on file 07/08/2023 Comments Unknown Sex and Gender Information Value Date Recorded Sex Assigned at Not on file Legal Sex Female 10:56 AM EST Gender Identity Not on file Sexual Orientation Not on file Last Filed Vital Signs Vital Sign Reading Time Taken Comments Blood Pressure 120/80 09/17/2021 2:41 PM EST Pulse - - Temperature 36.2 C (97.1 F) 09/17/2021 2:41 PM EST Respiratory Rate - - Oxygen Saturation - - Inhaled Oxygen Concentration - - Weight 94.3 kg (208 lb) 10/15/2021 11:49 AM EST Height 170.2 cm (5' 7 ) 10/15/2021 11:49 AM EST Body Mass Index 32.58 10/15/2021 11:49 AM EST Plan of Treatment Health Maintenance Due Date Last Done Comments DXA SCAN 1955 MAMMOGRAM 1995 COLOGUARD 2000 COLON CANCER SCREENING 5 YEA R SIGMOIDOSCOPY 2000 COLONOSCOPY 2000 COLORECTAL CANCER SCREENING 2000 CT COLONOGRAPHY 2000 FECAL OCCULT BLOOD TEST 2000 FIT Testing (1 year) 2000 ZOSTER VACCINE (2 of 2) 07/24/2020 05/29/2020 ANNUAL PHYSICAL 09/17/2021 HEPATITIS C SCREENING 09/17/2021 INFLUENZA VACCINE 04/26/2025 06/13/2021, 05/23/2020 COVID-19 Vaccine ( - season) 2025 TDAP/TD VACCINES (2 - Td or Tdap) 01/01/2029 019 Pneumococcal Vaccine 50+ Completed 06/13/2021, 04/27 Insurance [id number] & B [facility] Care Teams Export Coordinator Relationship Specialty Start Date End Date Scar Lyons MD [facility] [place] [address] [address] [facility] [place] [address] PCP - General Adolescent Medicine 09/02/21
--- OUTSIDE RECORDS SUMMARY | 2025-07-15 13:02 | XMS_ITS | Clinical Summary ---
Author Organization Healthcare Address [address] [place] [address] Care Team Providers Care Svp Business Development Name Role Phone Scar Lyons MD Primary Care Provider [phone] Family History Medical History Relation Name Comments Diabetes Father Heart attack Father Hypertension Father Other cancer Father Conversions - Other Mother [place] Hypertension Mother Hypertension Other 1 Other cancer Other 2 Diabetes Paternal Grandfather Conversions - Other Sibling 1 [place] Hypertension Sibling 2 Relation Name Status Comments Father Mother Other 1 Other 2 Paternal Grandfather Sibling 1 Sibling 2 Social History Tobacco Use Types Packs/Day Years Used Date Smoking Tobacco: Never Alcohol Use Standard Drinks/Week Comments No 0 (1 standard drink = 0.6 oz pur e alcohol) Comments Unknown Sex and Gender Information Value Date Recorded Sex Assigned at Not on file Legal Sex Female 8:43 PM EDT Gender Identity Not on file Sexual Orientation Not on file Last Filed Vital Signs Vital Sign Reading Time Taken Comments Blood Pressure 185/78 02/25/2023 2:23 PM EDT Pulse 72 01/23/2019 12:45 PM EDT Temperature 36.7 C (98 F) 01/23/2019 12:45 PM EDT Respiratory Rate - - Oxygen Saturation - - Inhaled Oxygen Concentration - - Weight 94.3 kg (208 lb) 02/25/2023 2:23 PM EDT Height 172.7 cm (5' 8 ) 02/25/2023 2:23 PM EDT Body Mass Index 31.63 02/25/2023 2:23 PM EDT Plan of Treatment Health Maintenance Due Date Last Done Comments [facility]-Bone Density Scan 1955 [facility]-Depression Screening 1955 [facility]-Infant/Child/Adol SDOH Screenings 1955 [facility]- SDOH Screenings 1973 [facility]-Adult SDOH Screenings 1973 CT Colonography 2000 Colonoscopy 2000 FIT-DNA 2000 FIT 2000 FOBT 2000 Sigmoidoscopy 2000 [facility]-Colorectal Cancer Screening 2000 [facility]-Zoster Vaccines (2 of 2) 07/24/2020 05/29/2020 [id number] Vaccine ( season) 2025 07/31/2021, 10/31/2020, 09/30/2020 [facility]-Influenza Vaccine (#1) 2025 [facility]-DTaP,Tdap,and Td Vaccine s (2 - Td or Tdap) 01/01/2029 01/01/2019 [facility]-RSV Vaccine: 60+ Years o r (1 - 1-dose 75+ series) 2030 [facility]-Pneumococcal Vaccine: 50 + Years Completed 06/13/2021, 05/23/2020 HPV Vaccines Aged Out No longer eligi ble based on patient's age to complete this topic [facility]-HIB Vaccines Aged Out No longer e ligible based on patient's age to complete this topic [facility]-Hepatitis A Vaccines Aged Out No longer eligible based on patient's age to complete this topic [facility]-IPV Vaccines Aged Out No longer e ligible based on patient's age to complete this topic [facility]-Rotavirus Vaccines Aged Out No lo nger eligible based on patient's age to complete this topic Insurance [employer] MEDICAID [facility] Care Teams Svp Business Development Relationship Specialty Start Date End Date Scar Lyons MD [address] [place] [address] PCP - General 02/06/21
== END 2025-07-12 23:59 ==
LOC: LAB.DROPOF 07-15 12:51
PROVIDERS: PCP Internal Medicine Adolescent Medicine; Visit Provider Student in an Organized Health Care Education/Training Program
DX: N39.0 Urinary tract infection, site not specified (principal)
CPT/HCPCS: 87086; 87088; 87186